=== PATIENT | female | born 1990 | race Caucasian/White ===

== ENCOUNTER 2016-09-16 21:17 | Outpatient (CLI) | payer BC, OTHER ==
[2016-09-16 22:23] LABS: APPEARANCE,URINE CLEAR; BILIRUBIN,URINE NEGATIVE (NEGATIVE); GLUCOSE, URINE NEGATIVE (NEGATIVE); KETONES,URINE 20 mg/dL (NEGATIVE); LEUKOCYTE ESTERASE,URINE MODERATE (NEGATIVE); NITRITE,URINE NEGATIVE (NEGATIVE); PROTEIN,URINE NEGATIVE (NEGATIVE); URINE SPECIFIC GRAVITY 1.009; UROBILINOGEN,URINE NEGATIVE mg/dL (<2.0)
[2016-09-16 22:36] LABS: URINE BARBITURATES SCREEN NEGATIVE; URINE METHADONE SCREEN NEGATIVE; URINE PHENCYCLIDINE SCREEN NEGATIVE
--- NOTE | 2016-09-16 23:01 | Non Stress Test Report ---
Non Stress Test Datetime Report Generated by CPN: 09/16/2016 23:01 DEMOGRAPHIC EGA NST: 35.5 INDICATION Indication for Study: Ordered by Provider Indication for Study (NST) Other: LC MONITORING Monitor Explained: Monitor Explained; Test Explained; Patient Verbalized Understanding Time on Monitor: 09/16/2016 21:37 Time off Monitor: 09/16/2016 22:38 NST Duration: 61 NST INTERVENTIONS NST Interventions: PO Hydration; Reposition Patient Physician Notified NST: Dr. Coello BABY A: [id number] BABY A Movement : Present Contraction Frequency : 2.5-8 FHR Baseline : 135 Accelerations : 15X15 Decelerations : None Variability : Moderate 6-25bpm NST Review: Meets Criteria for Reactive NST NST Review and Verified By : SHARATH Wirght Results: Reactive NST REPORT Report Trigger: Send Report
--- NOTE | 2016-09-17 04:46 | L&D General Admission ---
General Admit Datetime Report Generated by CPN: 09/17/2016 04:45 INFORMATION Patient Age: 25 (09/16/2016 21:15:QS system process) EDC: 10/16/2016 00:00 (09/16/2016 21:19:Cassie Do RN) EDC per Ultrasound: 10/16/2016 00:00 (09/16/2016 21:19:Cassie Do RN) : 3 (09/16/2016 21:19:Beena Bhakta RN) Para: 1 (09/16/2016 22:56:Marlene Omalley RN) Para: 1 (09/16/2016 21:19:Beena Bhakta RN) Term: 1 (09/16/2016 21:19:Beena Bhakta RN) : 0 (09/16/2016 21:19:Beena Bhakta RN) Spontaneous Abortions: 1 (09/16/2016 21:19:Beena Bhakta RN) Induced Abortions: 0 (09/16/2016 21:19:Beena Bhakta RN) Livin (09/16/2016 21:19:Beena Bhakta RN) Cesareans: 0 (09/16/2016 21:19:Beena Bhakta RN) VBACs: 0 (09/16/2016 21:19:Beena Bhakta RN) Ectopic: 0 (09/16/2016 21:19:Beena Bhakta RN) Multiple Births: 0 (09/16/2016 21:19:Beena Bhakta RN) Baby, Number in Womb: 1 (09/16/2016 22:56:Marlene Omalley RN) Baby, Number in Womb: 1 (09/16/2016 21:19:Beena Bhakta RN) CARE Primary Hiv Counselor: [facility] (09/16/2016 21:19:Marlene Omalley RN) Month of 1st Visit: February 2016 (09/16/2016 21:19:Marlene Omalley RN) Adequate Care: Yes (09/16/2016 21:19:Marlene Omalley RN) Height (in): 63 (09/16/2016 22:35:QS system process) ALLERGIES Medication Allergy: Yes (09/16/2016 21:19:Beena Bhakta RN) Medication Allergies: peanut (02/08/2014); adhesive (02/08/2014) (09/16/2016 21:15:QS system process) Latex Allergy: No Latex Allergies (09/16/2016 21:19:Marlene Omalley RN) Food Allergies: Peanut (09/16/2016 21:19:Marlene Omalley RN) Environmental Allergies: N/A (09/16/2016 21:19:Marlene Omalley RN) COMMUNICATION Primary Language: Moroccan (09/16/2016 21:19:Marlene Omalley RN) Medical Tx Preferred Language: Moroccan (09/16/2016 21:19:Marlene Omalley RN) Communication Barrier(s): None (09/16/2016 21:19:Marlene Omalley RN) DEMOGRAPHICS Address: [address] [place] [id number] (09/16/2016 21:15:QS system process) Zipcode: [address] (09/16/2016 21:15:QS system process) Home (09/16/2016 21:15:QS system process) SSN: [id number] (09/16/2016 21:15:QS system process) Next of Kin Name: FRANCISCO J TINSLEY (09/16/2016 21:15:QS system process) Next of Kin (09/16/2016 21:15:QS system process) Next of Kin Relationship: SPO (09/16/2016 21:15:QS system process) Date of : 1990 (09/16/2016 21:15:QS system process) Marital Status: (09/16/2016 21:15:QS system process) Sex: Female (09/16/2016 21:15:QS system process) Race: (09/16/2016 21:15:QS system process) Ethnicity: Non- or (09/16/2016 21:15:QS system process) Congregation: Moravian (09/16/2016 21:15:QS system process) FOB Involved: Yes (09/16/2016 21:19:Marlene Omalley RN) Father of Baby Name: Francisco J Tinsley (09/16/2016 21:19:Marlene Omalley RN) DRUG AND ALCOHOL USE Alcohol: No (09/16/2016 21:19:Marlene Omalley RN) Cigarettes: Former Smoker. [id number] (09/16/2016 21:19:Marlene Omalley RN) Marijuana: No (09/16/2016 21:19:Marlene Omalley RN) Cocaine: No (09/16/2016 21:19:Marlene Omalley RN) Other Illicit Drugs: No (09/16/2016 21:19:Marlene Omalley RN) VACCINE HISTORY Influenza Vaccine: No (09/16/2016 21:19:Marlene Omalley RN) Pneumococcal Vaccine: Yes (09/16/2016 21:19:Marlene Omalley RN) Tetanus Vaccine: Yes (09/16/2016:19:Marlene Omalley RN) Tdap Vaccine: Yes (09/16/2016 21:19:Marlene Omalley RN) Hepatitis B Vaccine: Yes (09/16/2016 21:19:Marlene Omalley RN) [place] Spreader Machine Operator: [facility] (09/16/2016 21:19:Marlene Omalley RN) Feeding Preference: Breast (09/16/2016 21:19:Marlene Omalley RN) Benefit of Breast Feed Discussed: Yes (09/16/2016:19:Marlene Omalley RN) Circumcision: Yes (09/16/2016 21:19:Marlene Omalley RN) Classes Attended: No (09/16/2016 21:19:Marlene Omalley RN) Tubal Ligation: No (09/16/2016 21:19:Marlene Omalley RN) Tubal Authorization Signed: N/A (09/16/2016 21:19:Marlene Omalley RN) Consent: N/A (09/16/2016 21:19:Marlene Omalley RN) Consent Signed: N/A (09/16/2016 21:19:Marlene Omalley RN) Pain Management Plans: Epidural (09/16/2016 21:19:Marlene Omalley RN) Plans for Labor and Delivery: None (09/16/2016 21:19:Marlene Omalley RN) Support Person: Francisco J Tinsley (09/16/2016 21:19:Marlene Omalley RN) Support Person Relationship: (09/16/2016 21:19:Marlene Omalley RN) Cultural/Spritual Practice: No (09/16/2016 21:19:Marlene Omalley RN) Spir/Cult Dietary Needs: Yes (09/16/2016 21:19:Marlene Omalley RN) Describe Dietary Needs: No red meat or pork (09/16/2016 21:19:Marlene Omalley RN) LIVING SITUATION/DISCHARGE PLAN Living Arrangements: House (09/16/2016 21:19:Marlene Omalley RN) Adequate Access to:: Electric; Heat; Refrigeration; Plumbing/Running water; Phone; Transportation (09/16/2016 21:19:Marlene Omalley RN) WIC Program: No (09/16/2016 21:19:Marlene Omalley RN) Discharge Cashier Tube Room Person: Francisco J Tinsley (09/16/2016 21:19:Marlene Omalley RN) Person to Help after Discharge: Francisco J Fleming (09/16/2016 21:19:Marlene Omalley RN) Currently Using Commun Resources: No (09/16/2016 21:19:Marlene Omalley RN) Outside Agency/Powder Shoveler: No (09/16/2016 21:19:Marlene Omalley RN) Car Seat for Discharge: No (09/16/2016 21:19:Marlene Omalley RN) Adoption Requested: No (09/16/2016 21:19:Marlene Omalley RN) Pt Contact w/ Post : N/A (09/16/2016 21:19:Marlene Omalley RN) LABS Blood Type: O Positive (09/16/2016 21:19:Beena Bhakta RN) Antibody Screen: negative (09/16/2016 21:19:Beena Bhakta RN) Group Beta Strep: positive (09/16/2016 21:19:Beena Bhakta RN) Gonorrhea: Negative (09/16/2016 21:19:Beena Bhakta RN) Chlamydia: Negative (09/16/2016 21:19:Beena Bhakta RN) RPR/VDRL: Nonreactive (09/16/2016 21:19:Beena Bhakta RN) Hepatitis B: Negative (09/16/2016 21:19:Beena Bhakta RN) Rubella: Non-Immune (09/16/2016 21:19:Beena Bhakta RN) Rubella Titer: 0.97 (09/16/2016 21:19:Beena Bhakta RN) OB/PREVIOUS HISTORY Previous Procedures: Ultrasound; NST (09/16/2016 21:19:Marlene Omalley RN) Current Procedures: Ultrasound; NST (09/16/2016 21:19:Marlene Omalley RN) History of Previous : No (09/16/2016 21:19:Marlene Omalley RN) History of Gestational Diabetes: No (09/16/2016 21:19:Marlene Omalley RN) History of PIH: Yes (09/16/2016 21:19:Marlene Omalley RN) History of Incompetent Cervix: No (09/16/2016 21:19:Marlene Omalley RN) History of Placenta Previa/Abrup: No (09/16/2016 21:19:Marlene Omalley RN) History of Macrosomia: No (09/16/2016 21:19:Marlene Omalley RN) History of IUGR: No (09/16/2016 21:19:Marlene Omalley RN) History of Hemorrhage: Yes (09/16/2016 21:19:Marlene Omalley RN) History of Loss/Stillborn: No (09/16/2016 21:19:Marlene Omalley RN) History of : No (09/16/2016 21:19:Marlene Omalley RN) History of D (Rh) Sensitization: No (09/16/2016 21:19:Marlene Omalley RN) History Recurrent Loss/Stillborn: No (09/16/2016 21:19:Marlene Omalley RN) History Depression/PP Depression: No (09/16/2016 21:19:Marlene Omalley RN) History of Uterine Anomaly/JAYANT: No (09/16/2016 21:19:Marlene Omalley RN) History of Infertility: No (09/16/2016 21:19:Marlene Omalley RN) History of ART Treatment: No (09/16/2016 21:19:Marlene Omalley RN) History of JAYANT: No (09/16/2016 21:19:Marlene Omalley RN) Comments Obstetrical History: G1 - 2012, miscarriage G2 - 2013, , girl 40.5 weeks G3 - current (09/16/2016 21:19:Marlene Omalley RN) MEDICAL HISTORY Med Hx Diabetes: No (09/16/2016 21:19:Marlene Omalley RN) Med Hx Hypertension: No (09/16/2016 21:19:Marlene Omalley RN) Med Hx Heart Disease: No (09/16/2016 21:19:Marlene Omalley RN) Med Hx Autoimmune Disorder: No (09/16/2016 21:19:Marlene Omalley RN) Med Hx Kidney Disease/UTI: No (09/16/2016 21:19:Marlene Omalley RN) Med Hx Neurologic/Epilepsy: No (09/16/2016 21:19:Marlene Omalley RN) Med Hx Psychiatric Disorders: No (09/16/2016 21:19:Marlene Omalley RN) Med Hx Hepatitis/Liver Disease: No (09/16/2016 21:19:Marlene Omalley RN) Med Hx Varicosities/Phlebitis: No (09/16/2016 21:19:Marlene Omalley RN) Med Hx Thyroid Dysfunction: No (09/16/2016 21:19:Marlene Omalley RN) Med Hx Trauma/Violence: No (09/16/2016 21:19:Marlene Omalley RN) Med Hx Blood Transfusion: No (09/16/2016 21:19:Marlene Omalley RN) Med Hx Pulmonary (Asthma,TB): Yes (09/16/2016 21:19:Marlene Omalley RN) Med Hx Breast: No (09/16/2016 21:19:Marlnee Omalley RN) Med Hx DANCE HALL HOSTESS Surgery: No (09/16/2016 21:19:Marlene Omalley RN) Med Hx Hospitalization/Surgery: No (09/16/2016 21:19:Marlene Omalley RN) Med Hx Anesthetic Complications: No (09/16/2016 21:19:Marlene Omalley RN) Med Hx Abnormal Pap Smear: No (09/16/2016 21:19:Marlene Omalley RN) Other Medical Diseases: No (09/16/2016 21:19:Marlene Omalley RN) Med Hx Significant Family Hx: No (09/16/2016 21:19:Marlene Omalley RN) Details of Med/Surg Hx: Asthma - exercise induced (09/16/2016 21:19:Marlene Omalley RN) INFECTIOUS HISTORY Inf Hx Gonorrhea: No (09/16/2016 21:19:Marlene Omalley RN) Inf Hx Chlamydia: No (09/16/2016 21:19:Marlene Omalley RN) Inf Hx Syphilis: No (09/16/2016 21:19:Marlene Omalley RN) Inf Hx HIV/AIDS: No (09/16/2016 21:19:Marlene Omalley RN) Inf Hx Human Papilloma Virus: No (09/16/2016 21:19:Marlene Omalley RN) Inf Hx Pt/Partner Genital Herpes: No (09/16/2016 21:19:Marlene Omalley RN) Inf Hx Tuberculosis/Exposure: No (09/16/2016 21:19:Marlene Omalley RN) Inf Hx Hepatitis B,C: No (09/16/2016 21:19:Marlene Omalley RN) Inf Hx Rash or Viral Illness: No (09/16/2016 21:19:Marlene Omalley RN) GENETIC HISTORY Gen Hx Age >=35 at KEITH: No (09/16/2016 21:19:Marlene Omalley RN) Gen Hx Thalassemia: No (09/16/2016 21:19:Marlene Omalley RN) Gen Hx Congenital Heart Defect: No (09/16/2016 21:19:Marlene Omalley RN) Gen Hx Neural Tube Defect: No (09/16/2016 21:19:Marlene Omalley RN) Gen Hx Down's Syndrome: No (09/16/2016 21:19:Marlene Omalley RN) Gen Hx Sean-Sachs: No (09/16/2016 21:19:Marlene Omalley RN) Gen Hx Naheed: No (09/16/2016 21:19:Marlene Omalley RN) Gen Hx Familial Dysautonomia: No (09/16/2016 21:19:Marlene Omalley RN) Gen Hx Sickle Cell Disease/Trait: No (09/16/2016 21:19:Marlene Omalley RN) Gen Hx Hemophilia/Blood Disorder: No (09/16/2016 21:19:Marlene Omalley RN) Gen Hx Muscular Dystrophy: No (09/16/2016 21:19:Marlene Omalley RN) Gen Hx Cystic Fibrosis: No (09/16/2016 21:19:Marlene Omalley RN) Gen Hx [place] Chorea: No (09/16/2016 21:19:Marlene Omalley RN) Gen Hx Mental Retardation/Autism: No (09/16/2016 21:19:Marlene Omalley RN) Gen Hx Tested for Fragile X: No (09/16/2016 21:19:Marlene Omalley RN) Gen Hx Other Inher/Chromosomal: No (09/16/2016 21:19:Marlene Omalley RN) Gen Hx Maternal Metabolic DO: No (09/16/2016 21:19:Marlene Omalley RN) Gen Hx Pt Father or FOB Defect: No (09/16/2016 21:19:Marlene Omalley RN) Gen Hx Other Genetic History: No (09/16/2016 21:19:Marlene Omalley RN) Gen Hx Drugs/Meds since LMP: Yes (09/16/2016 21:19:Marlene Omalley RN) Gen Hx Medications: , Zantac, and Tylenol (09/16/2016 21:19:Marlene Omalley RN)
--- NOTE | 2016-09-17 04:46 | L&D Flow Sheet ---
LD Flowsheet Datetime Report Generated by CPN: 09/17/2016 04:45 Datetime: 09/16/2016 22:38 Patient Care Patient Care Comments: Discussed labor and signs and symptoms of when to return to office or hospital with patient; patient verbalized understanding. (Marlene Field, RN) Datetime: 09/16/2016 22:30 Uterine Activity Monitor Mode: External; Palpation ([facility], RN) Frequency (min): 5-8 ([facility], ) Quality: Mild ([facility], RN) Duration (sec): 70-100 ([facility], RN) Resting Tone (Palpate): Relaxed ([facility], RN) Assessment A Monitor Mode: External US ([facility], RN) FHR Baseline Rate : 135 ([facility], RN) Variability: Moderate 6-25 bpm [facility] Accelerations: 15X15 ([facility], RN) Decelerations: None (Marlene Field, RN) Datetime: 09/16/2016 22:27 Communication Communication: RN Reviewed Strip; Provider Orders Received; Call/Page Placed to Provider (Marlene Omalley RN) Communication Comments: Informed Dr. Coello of patient's complaint, history, vag exam, urine results and FHR/Contractions; orders received to discharge home for false labor. (Marlene Omalley, RN) Datetime: 09/16/2016 22:11 Vaginal Exam Dilatation (cm): 0.5 (Marlene Omalley, SHARATH) Effacement (%): 60 (Marlene Omalley, SHARATH) Station: -2 (Marlene Omalley RN) Exam by: SHARATH Siddiqi (Marlene Omalley RN) Cervix, Consistency: Moderate (Marlene Omalley RN) Cervix, Position: Midposition (Marlene Omalley, SHARATH) Datetime: 09/16/2016 22:10 Vital Signs NBP Sys/Tati/Mean (mmHg): 135 (QS system process) : 69 (QS system process) : 95 (QS system process) Pulse: 106 (QS system process) Datetime: 09/16/2016 22:00 Uterine Activity Monitor Mode: External; Palpation ([facility]) Frequency (min): 2.5-6.5 ([facility], ) Quality: Mild ([facility], ) Duration (sec): 50-80 ([facility]) Resting Tone (Palpate): Relaxed ([facility], ) Assessment A Monitor Mode: External US (Marlene Omalley RN) FHR Baseline Rate : 145 (Marlene Omalley RN) Variability: Moderate 6-25 bpm (Marlene Omalley, RN) Accelerations: 15X15 (Marlene Omalley RN) Decelerations: None (Marlnee Omalley RN) Datetime: 09/16/2016 21:47 Frequency (min): q4-6 minutes (Marlene Omalley, SHARATH) Pain Pain Scale: 2 (Marlene Omalley RN) Pain Presence: Intermittent (Marlene Omalley RN) Pain Type: Cramping; Contraction; Stabbing; Pressure (Marlene Omalley, RN) Pain Location: Abdomen; Back (Marlene Omalley RN) Pain Goal: 0 (Marlene Omalley RN) Pain Relief Measures: Comfort Measures (Marlene Omalley RN) Pain Coping: Talking Through Contractions; Breathing Through Contractions (Marlene Omalley, RN) Vaginal Bleeding: None (Marlene Omalley, RN) Maternal Assessment Level of Consciousness: Fully Conscious (Marlene Field, RN) DTR's/Clonus: DTRs 1+; No Clonus (Marlene Field, RN) Headache: Denies (Marlene Field, RN) Breath Sounds, Left: Clear and Equal (Marlene Field, RN) Breath Sounds, Right: Clear and Equal (Marlene Field, RN) Nausea/Vomiting: Present (Marlene Field, RN) RUQ Epigastric Pain: Denies (Marlene Field, RN) Teaching Instructional Method: Verbal; Patient Instructed; Verbalized Understanding (Marlene Omalley, RN) Plan of Care: Plan of Care Discussed (Marlene Omalley, RN) Unit Routine: [place] to Room; Call [place]; Bed; Visiting Policy; Waiting Areas; Infant Security; Phone/Cell Phone Use; Unit Personnel; Handwashing; Flu/Illness Precautions; Monitoring; Safety/Fall Risk Prevention; Bathroom Privileges (Marlene Omalley, RN) Datetime: 09/16/2016 21:39 Vital Signs NBP Sys/Tati/Mean (mmHg): 122 (QS system process) : 71 (QS system process) : 91 (QS system process) Pulse: 134 (QS system process)
--- NOTE | 2016-09-17 04:46 | L&D Current Admission ---
Current Admit Datetime Report Generated by CPN: 09/17/2016 04:45 ADMISSION INFORMATION Chief Complaint: Contractions (09/16/2016 21:47:Marlene Omalley, SHARATH)
--- NOTE | 2016-09-17 04:47 | L&D Admission Assessment ---
LD ADM ASMT Datetime Report Generated by CPN: 09/17/2016 04:45 PATIENT ASSESSMENT Assessment Type: Triage (09/16/2016 21:47:Marlene Field, RN) WEIGHT Weight (lb): 200 (09/16/2016 22:35:QS system process) Weight (kg): 90.9 (09/16/2016 22:35:QS system process) PAIN Pain Scale: 2 (09/16/2016 21:47:Marlene Omalley RN) Pain Presence: Intermittent (09/16/2016 21:47:Marlene Omalley RN) Pain Type: Cramping; Contraction; Stabbing; Pressure (09/16/2016 21:47:Marlene Omalley RN) Pain Location: Abdomen; Back (09/16/2016 21:47:Marlene Omalley RN) Pain Goal: 0 (09/16/2016 21:47:Marlene Omalley RN) Pain Related to Contraction: Yes (09/16/2016 21:47:Marlene Omalley RN) CONTRACTIONS Frequency (min): 5-8 (09/16/2016 22:30:Marlene Omalley RN) Frequency (min): 2.5-6.5 (09/16/2016 22:00:Marlene Omalley RN) Frequency (min): q4-6 minutes (09/16/2016 21:47:Marlene Omalley RN) Duration (sec): 70-100 (09/16/2016 22:30:Marlene Omalley RN) Duration (sec): 50-80 (09/16/2016 22:00:Marlene Omalley RN) Quality: Mild (09/16/2016 22:30:Marlene Omalley RN) Quality: Mild (09/16/2016 22:00:Marlene Omalley RN) Resting Tone [place]: Relaxed (09/16/2016 22:30:Marlene Omalley RN) Resting Tone [place]: Relaxed (09/16/2016 22:00:Marlene Omalley RN) VAGINAL EXAM Dilatation (cm): 0.5 (09/16/2016 22:11:Marlene Omalley RN) Effacement (%): 60 (09/16/2016 22:11:Marlene Omalley RN) Station: -2 (09/16/2016 22:11:Marlene Omalley RN) NEURO Level of Consciousness: Fully Conscious (09/16/2016 21:47:Marlene Omalley RN) DTR's/Clonus: DTRs 1+; No Clonus (09/16/2016 21:47:Marlene Omalley RN) Headache: Denies (09/16/2016 21:47:Marlene Omalley RN) Dizziness: No (09/16/2016 21:47:Marlene Omalley RN) Blurred Vision: No (09/16/2016 21:47:Marlene Omalley RN) Extremity Numbness/Tingling : None (09/16/2016 21:47:Marlene Omalley RN) Extremity Movement: Full Range of Motion (09/16/2016 21:47:Marlene Omalley RN) CARDIOVASCULAR Heart Rhythm: Regular (09/16/2016 21:47:Marlene Omalley RN) Nailbeds: [place] (09/16/2016 21:47:Marlene Omalley RN) Capillary Refill: Less than 3 Seconds (09/16/2016 21:47:Marlene Omalley RN) Lower Extremities Edema: None (09/16/2016 21:47:Marlene Omalley RN) Lower Extremities Edema Degree: None (09/16/2016 21:47:Marlene Omalley RN) Upper Extremities Edema: None (09/16/2016 21:47:Marlene Omalley RN) Upper Extremities Edema Degree: None (09/16/2016 21:47:Marlene Omalley RN) Facial Edema: None (09/16/2016 21:47:Marlene Omalley RN) Marcellus's Sign Left Leg: Negative (09/16/2016 21:47:Marlene Omalley RN) Marcellus's Sign Right Leg: Negative (09/16/2016 21:47:Marlene Omalley RN) DVT RISK ASSESSMENT DVT Risk Age: Age less than 41 years (09/16/2016 21:47:Marlene Omalley RN) DVT Risk BMI: BMI<31 (09/16/2016 21:47:Marlene Omalley RN) DVT Risk Surgery: None Applicable (09/16/2016 21:47:Marlene Omalley RN) DVT Risk Other: Women Only- or (<1 month) (09/16/2016 21:47:Marlene Omalley RN) DVT Risk Total: 1 (09/16/2016 21:47:QS system process) DVT Risk Text: Low Risk (<10%) No specific measures, early ambulation (09/16/2016:47:QS system process) RESPIRATORY Respiratory Effort: Unlabored; Regular Rhythm; Equal Expansion (09/16/2016 21:47:Marlene Omalley RN) Breath Sounds, Left: Clear and Equal (09/16/2016:47:Marlene Omalley RN) Breath Sounds, Right: Clear and Equal (09/16/2016:47:Marlene Omalley RN) Cough Productivity: None (09/16/2016 21:47:Marlene Omalley RN) GASTROINTESTINAL Nausea/Vomiting: Present (09/16/2016 21:47:Marlene Omalley RN) Bowel Sounds: Normoactive (09/16/2016 21:47:Marlene Omalley RN) RUQ Epigastric Pain: Denies (09/16/2016 21:47:Marlene Omalley RN) Bowel Patterns: Loose Stool (09/16/2016 21:47:Marlene Omalley RN) Hemorrhoids: None (09/16/2016 21:47:Marlene Omalley RN) Diet Type: Regular diet (09/16/2016 21:47:Marlene Omalley RN) Last Meal: 09/16/2016 21:00 (09/16/2016 21:47:Marlene Omalley RN) GENITOURINARY Bladder: Nondistended (09/16/2016 21:47:Marlene Omalley RN) Frequency of Urination: No (09/16/2016 21:47:Marlene Omalley RN) Urination Burning: No (09/16/2016 21:47:Marlene Omalley RN) CVA Tenderness: No (09/16/2016 21:47:Marlene Omalley RN) INTEGUMENTARY Skin Color: Normal for Race (09/16/2016 21:47:Marlene Omalley RN) Skin Temperature: Warm (09/16/2016 21:47:Marlene Omalley RN) Skin Moisture: Dry (09/16/2016 21:47:Marlene Omalley RN) EZEQUIEL SKIN ASSESSMENT Ezequiel Scale Sensory Perception: No Impairment- Responds to verbal commands. Has no sensory deficit which would limit ability to feel or voice pain or discomfort (09/16/2016 21:47:Marlene Omalley RN) Eezquiel Scale Moisture: Rarely Moist- Skin is usually dry. Linen only requires changing at routine intervals (09/16/2016 21:47:Marlene Omalley RN) Ezequiel Scale Activity: Walks Frequently- Walks outside the room at least twice a day and inside room at least every 2 hours during the day. (09/16/2016 21:47:Marlene Omalley RN) Ezequiel Scale Mobility: No Limitations- Makes major and frequent changes in position without assistance (09/16/2016 21:47:Marlene Omalley RN) Ezequiel Scale Nutrition: Excellent- Eats most of every meal. Never refuses a meal. Usually eats a total of 4 or more servings of meat and dairy products. Occasionally eats between meals. Does not require supplementation (09/16/2016 21:47:Marlene Omalley RN) Ezequiel Scale Friction and Shear: No Apparent Problem- Moves in bed and in chair independently and has sufficient muscle strength to lift up completely during move. Maintains good position in bed or chair at all times (09/16/2016 21:47:Marlene Omalley RN) Ezequiel Scale Total: 23 (09/16/2016 21:47:QS system process) Ezequiel Scale Risk: No Risk of Pressure Ulcer Noted at this Time (09/16/2016 21:47:QS system process) SUPPORT Family Support: Family supportive (09/16/2016 21:47:Marlene Omalley RN) Emotional State: Anxious (09/16/2016 21:47:Marlene Omalley RN) SAFETY Call [place] Within Reach: Yes (09/16/2016 21:47:Marlene Omalley RN) Side Rails Up: Yes (09/16/2016 21:47:Marlene Omalely RN) Bed Wheels Locked: Yes (09/16/2016 21:47:Marlene Omalley RN) Arm Bands Present: Yes (09/16/2016 21:47:Marlene Omalley RN) Isolation: [place] (09/16/2016 21:47:Marlene Omalley RN) FALL SCREEN Fall Risk History of Falling: (0) No (09/16/2016 21:47:Marlene Omalley RN) Fall Risk Secondary Diagnosis: (0) No (09/16/2016 21:47:Marlene Omalley RN) Fall Risk Ambulatory Aid: (0) None/Bedrest/Wheelchair/Nurse Assist (09/16/2016 21:47:Marlene Omalley RN) Fall Risk IV Therapy: (0) No (09/16/2016 21:47:Marlene Omalley RN) Fall Risk Gait: (0) Normal/Bedrest/Immobile (09/16/2016 21:47:Marlene Omalley RN) Fall Risk Mental Status: (0) Oriented to Own Ability (09/16/2016 21:47:Marlene Omalley RN) Fall Risk Score: 0 (09/16/2016 21:47:QS system process) Fall Risk Score Definition: No Risk: No action required (09/16/2016 21:47:QS system process) RECENT TRAVEL/INFECTIOUS DISEASE Recent Exp Communicable Disease: No (09/16/2016 21:47:Marlene Omalley RN) Cough or Fever: No (09/16/2016 21:47:Marlene Omalley RN) Foreign Travel Past 10 Days: No (09/16/2016 21:47:Marlene Omalley RN) Open Wounds or Sores: No (09/16/2016 21:47:Marlene Omalley RN) Prior Antibiotic Resistance Tx: No (09/16/2016 21:47:Marlene Omalley RN) Cultures Obtained: Not Applicable (09/16/2016 21:47:Marlene Omalley RN) Isolation Initiated: No (09/16/2016 21:47:Marlene Omalley RN) Pt/Family Education: Handwashing Hygiene (09/16/2016 21:47:Marlene Omalley RN) BABY A FHR Baseline Rate (bpm) Baby A: 135 (09/16/2016 22:30:Marlene Omalley RN) FHR Baseline Rate (bpm) Baby A: 145 (09/16/2016 22:00:Marlene Omalley RN) Variability Baby A: Moderate 6-25 bpm (09/16/2016 22:30:Marlene Omalley RN) Variability Baby A: Moderate 6-25 bpm (09/16/2016 22:00:Marlene Omalley RN) Accelerations Baby A: 15X15 (09/16/2016 22:30:Marlene Omalley RN) Accelerations Baby A: 15X15 (09/16/2016 22:00:Marlene Omalley RN) Decelerations Baby A: None (09/16/2016 22:30:Marlene Omalley RN) Decelerations Baby A: None (09/16/2016 22:00:Marlene Omalley RN)
--- NOTE | 2016-09-17 04:47 | L&D Discharge Summary ---
OB Discharge Summary Datetime Report Generated by CPN: 09/17/2016 04:45 DISCHARGE DIAGNOSIS Diagnosis/Symptoms: False Labor Gestation: 35.5 Number of Babies in Womb: 1 Parity: 1 DIET/ACTIVITY/RESTRICTIONS Diet: Regular Activity: Normal Activity TEACHING/INSTRUCTIONS/REFERRALS Instructions Given To: Patient Instructions Understood: Patient Verbalized Understanding Referrals: None Educational Materials- Other: Labor DISCHARGE INFORMATION Discharged AMA: No Discharge Date/Time: 09/16/2016 22:54 Discharged To: Home Discharge Provider Name: Dr. Coello Accompanied By: Self Discharge Method: Ambulatory Condition: Stable FOLLOW UP INFORMATION Follow Up With: [facility] Follow Up On: As Scheduled Follow Up Phone Number: [facility] - Comments: Discussed labor and signs and symptoms of when to return to office or hospital with patient. Patient verbalized understanding. Patient discharged home due to false labor via ambulation in stable condition. GENERAL INSTR-CALL PROVIDER IF: Contractions: Contractions or cramps become more frequent than 8 in one hour or 4 in 20 minutes; Regular painful contractions every 5 minutes or less for one hour. Time your contractions from the beginning of one to the beginning of the next Pressure: Pressure in your vagina or lower abdomen that may feel like the baby is pushing down Period Like Cramps: Period-like cramps or low dull backache that may come and go Cramps/Diarrhea: Abdominal cramps that may be accompanied by diarrhea Gush of Fluid/Blood: Gush of fluid or blood from your vagina (it is normal to have spotting after vaginal exam or intercourse) Vaginal Discharge: Change in the type or amount of vaginal discharge Decreased Movement: Your baby is not moving as much as usual- 4 movements in 1 hour after drinking and resting on side Temperature: Temperature greater than 100.0(F) orally
--- NOTE | 2016-09-17 04:47 | Antepartum Discharge Summary ---
Antepartum DC Datetime Report Generated by CPN: 09/17/2016 04:45 DIET/ACTIVITY/RESTRICTIONS Diet: Regular (09/16/2016 22:56:Marlene Omalley RN) Activity: Normal Activity (09/16/2016 22:56:Marlene Omalley RN) TEACHING/INSTRUCTIONS/REFERRALS Instructions Given To: Patient (09/16/2016 22:56:Marlene Omalley RN) Instructions Understood: Patient Verbalized Understanding (09/16/2016 22:56:Marlene Omalley RN) Referrals: None (09/16/2016 22:56:Marlene Omalley RN) Educational Materials- Other: Labor (09/16/2016 22:56:Marlene Omalley RN) DISCHARGE INFORMATION Discharged AMA: No (09/16/2016 22:56:Marlene Omalley RN) Discharge Date/Time: 09/16/2016 22:54 (09/16/2016 22:56:Marlene Omalley RN) Discharged To: Home (09/16/2016 22:56:Marlene Omalley RN) Discharge Provider Name: Dr. Coello (09/16/2016 22:56:Marlene Omalley RN) Accompanied By: Self (09/16/2016 22:56:Marlene Omalley RN) Discharge Method: Ambulatory (09/16/2016 22:56:Marlene Omalley RN) Condition: Stable (09/16/2016 22:56:Marlene Omalley RN) FOLLOW UP INFORMATION Follow Up With: [facility] (09/16/2016 22:56:Marlene Omalley RN) Follow Up On: As Scheduled (09/16/2016 22:56:Marlene Omalley RN) Follow Up Phone Number: [facility] - (09/16/2016 22:56:Marlene Omalley RN) Comments: Discussed labor and signs and symptoms of when to return to office or hospital with patient. Patient verbalized understanding. Patient discharged home due to false labor via ambulation in stable condition. (09/16/2016 22:56:Marlene Omalley RN) GENERAL INSTR-CALL PROVIDER IF: Contractions: Contractions or cramps become more frequent than 8 in one hour or 4 in 20 minutes; Regular painful contractions every 5 minutes or less for one hour. Time your contractions from the beginning of one to the beginning of the next (09/16/2016 22:56:Marlene Omalley RN) Pressure: Pressure in your vagina or lower abdomen that may feel like the baby is pushing down (09/16/2016 22:56:Marlene Omalley RN) Period Like Cramps: Period-like cramps or low dull backache that may come and go (09/16/2016 22:56:Marlene Omalley RN) Cramps/Diarrhea: Abdominal cramps that may be accompanied by diarrhea (09/16/2016 22:56:Marlene Omalley RN) Gush of Fluid/Blood: Gush of fluid or blood from your vagina (it is normal to have spotting after vaginal exam or intercourse) (09/16/2016 22:56:Marlene Omalley RN) Vaginal Discharge: Change in the type or amount of vaginal discharge (09/16/2016 22:56:Marlene Omalley RN) Decreased Movement: Your baby is not moving as much as usual- 4 movements in 1 hour after drinking and resting on side (09/16/2016 22:56:Marlene Omalley RN) Temperature: Temperature greater than 100.0(F) orally (09/16/2016 22:56:Marlene Omalley RN) Hypertension Signs/Symptoms: Severe headache which is not relieved 30 minutes after taking Tylenol(Acetaminophen); Blurry vision or spots before your eyes; Severe heartburn or pain on the upper right side of your abdomen that is not relieved by an antacid; Increased swelling in your face, hands or feet (09/16/2016 22:56:Marlene Omalley RN) Urinary Output: Decreased urinary output or dark colored urine (09/16/2016 22:56:Marlene Omalley RN)
== END 2016-09-16 22:54 | disposition home or self-care (01) ==
LOC: LC 21:17
PROVIDERS: ATTEND Obstetrics & Gynecology
PROC: 4A1HXCZ Monitoring of Products of Conception, Cardiac Rate, External Approach (ICD-10-PCS; principal; 2016-09-16)
DX: O47.03 False labor before 37 completed weeks of gestation, third trimester (principal); Z3A.35 35 weeks gestation of pregnancy
CPT/HCPCS: 59025; 80307; 81001

== ENCOUNTER 2016-10-10 04:46 | Inpatient (IN) | payer BC, OTHER ==
[2016-10-10] MEDS ORDERED: RINGERS SOLUTION,LACTATED 1,000 ML IV PRN (04:52)
[2016-10-10] MEDS ORDERED: RINGERS SOLUTION,LACTATED 300 ML IV ONE (04:52)
[2016-10-10] MEDS ORDERED: MISOPROSTOL 0.1 MG TABLET PV SCH (05:00)
[2016-10-10 05:27] LABS: ABSOLUTE EOSINOPHILS # (AUTO) 0.2 10^3/uL (0.0-0.6); ABSOLUTE LYMPHOCYTES (AUTO) 2.7 10^3/uL (0.5-4.7); ABSOLUTE MONOCYTES (AUTO) 0.8 10^3/uL (0.1-1.4); ABSOLUTE NEUT (AUTO) 6.8 10^3/uL (1.7-8.2); BASOPHILS % (AUTO) 0.4 % (0-2); EOSINOPHILS % (AUTO) 1.8 % (0-6); HEMATOCRIT 35.4 % (36.0-47.0); HGB HCT DIFFERENCE 0.6; LYMPHOCYTES % (AUTO) 25.3 % (13-45); MEAN CORPUSCULAR HGB CONC 33.9 g/dL (32.0-36.0); MEAN CORPUSCULAR VOLUME 83 fl (80-97); MONOCYTES % (AUTO) 7.8 % (3-13); RED BLOOD COUNT 4.29 10^6/uL (3.72-5.28); RED CELL DISTRIBUTION WIDTH 15.5 % (11.5-14.0); SEGMENTED NEUTROPHILS % (AUTO) 64.7 % (42-78); WHITE BLOOD COUNT 10.5 10^3/uL (4.0-10.5)
[2016-10-10 05:32] LABS: APPEARANCE,URINE CLOUDY; BILIRUBIN,URINE NEGATIVE (NEGATIVE); GLUCOSE, URINE NEGATIVE (NEGATIVE); KETONES,URINE NEGATIVE (NEGATIVE); LEUKOCYTE ESTERASE,URINE LARGE (NEGATIVE); NITRITE,URINE NEGATIVE (NEGATIVE); PROTEIN,URINE NEGATIVE (NEGATIVE); URINE SPECIFIC GRAVITY 1.012; UROBILINOGEN,URINE NEGATIVE mg/dL (<2.0)
[2016-10-10] MEDS ORDERED: MISOPROSTOL 0.1 MG TABLET ONE (05:34)
[2016-10-10 05:47] LABS: URINE BARBITURATES SCREEN NEGATIVE; URINE METHADONE SCREEN NEGATIVE; URINE OPIATES LOW NEGATIVE; URINE PHENCYCLIDINE SCREEN NEGATIVE
--- NOTE | 2016-10-10 08:00 | L&D Flow Sheet ---
LD Flowsheet Datetime Report Generated by CPN: 10/10/2016 08:00 Datetime: 10/10/2016 07:47 Vital Signs NBP Sys/Tati/Mean (mmHg): 109 (QS system process) : 67 (QS system process) : 82 (QS system process) Pulse: 95 (QS system process) Datetime: 10/10/2016 07:17 Vital Signs NBP Sys/Tati/Mean (mmHg): 121 (QS system process) : 66 (QS system process) : 88 (QS system process) Pulse: 100 (QS system process) Datetime: 10/10/2016 06:47 Vital Signs NBP Sys/Tati/Mean (mmHg): 108 (QS system process) : 66 (QS system process) : 77 (QS system process) Pulse: 91 (QS system process) Datetime: 10/10/2016 06:17 Vital Signs NBP Sys/Tati/Mean (mmHg): 102 (QS system process) : 54 (QS system process) : 74 (QS system process) Pulse: 103 (QS system process) Datetime: 10/10/2016 06:00 Respirations: 18 (Apryl Walden) Uterine Activity Monitor Mode: External; Palpation (Apryl Walden) Monitor Interventions for UA: [place] Adjusted (Apryl Walden) Frequency (min): none (Apryl Walden) Resting Tone (Palpate): Relaxed (Apryl Walden) Assessment A Monitor Mode: External US (Apryl Walden) Monitor Interventions for FHR: Ultrasound Adjusted (Apryl Walden) FHR Baseline Rate : 140 (Apryl Walden) FHR Baseline Changes: No Baseline Change (Apryl Walden) Variability: Moderate 6-25 bpm (Apryl Walden) Accelerations: 15X15 (Apryl Walden) Decelerations: None (Apryl Walden) Patient Position/Activity: Right Tilt (Apryl Walden) Datetime: 10/10/2016 05:47 Vital Signs NBP Sys/Tati/Mean (mmHg): 105 (QS system process) : 58 (QS system process) : 77 (QS system process) Pulse: 105 (QS system process) Datetime: 10/10/2016 05:30 Respirations: 18 (Apryl Walden) Uterine Activity Monitor Mode: External; Palpation (Apryl Walden) Monitor Interventions for UA: [place] Adjusted (Apryl Walden) Frequency (min): none (Apryl Walden) Resting Tone (Palpate): Relaxed (Apryl Walden) Assessment A Monitor Mode: External US (Apryl Walden) Monitor Interventions for FHR: Ultrasound Adjusted (Apryl Walden) FHR Baseline Rate : 140 (Apryl Walden) Variability: Moderate 6-25 bpm (Apryl Walden) Accelerations: 15X15 (Apryl Walden) Decelerations: None (Apryl Walden) Medications Cervical Ripening Agents: Cytotec @ (Annotations: 25mcg) (Apryl Walden) Patient Position/Activity: Right Tilt (Apryl Walden) Datetime: 10/10/2016 05:25 Pain Pain Scale: 0 (Apryl Walden) Pain Presence: None/Denies (Apryl Walden) Pain Assessment Comments: (Apryl Walden) Vaginal Bleeding: None (Apryl Walden) Maternal Assessment Level of Consciousness: Fully Conscious (Apryl Walden) DTR's/Clonus: DTRs 2+; No Clonus (Apryl Walden) Headache: Denies (Apryl Walden) Breath Sounds, Left: Clear and Equal (Apryl Walden) Breath Sounds, Right: Clear and Equal (Apryl Walden) Nausea/Vomiting: Denies (Apryl Walden) RUQ Epigastric Pain: Denies (Apryl Walden) Patient Position/Activity: Right Tilt (Apryl Walden) Teaching Instructional Method: Verbal (Apryl Walden) Plan of Care: Plan of Care Discussed (Apryl Walden) Unit Routine: [place] to Room; Call [place]; Bed; Visiting Policy; Waiting Areas; Infant Security; Phone/Cell Phone Use; Photography; Unit Personnel; Consents Signed; Handwashing; Flu/Illness Precautions; Monitoring; IV Pumps; Safety/Fall Risk Prevention; Diet/Nutrition Services; Bathroom Privileges; Medications (Apryl Walden) Datetime: 10/10/2016 05:17 Vital Signs NBP Sys/Tati/Mean (mmHg): 124 (QS system process) : 74 (QS system process) : 89 (QS system process) Pulse: 120 (QS system process) Datetime: 10/10/2016 05:15 Vaginal Exam Dilatation (cm): 2.0 (Apryl Walden) Effacement (%): 50 (Apryl Walden) Station: -3 (Apryl Walden) Exam by: A Walden Rn (Apryl Walden) Datetime: 10/10/2016 05:12 Patient Care IV/Blood Work: IV Started; IV Bolus Started (Annotations: 18g right forearm) (Apryl Walden)
[2016-10-10] MEDS ORDERED: OXYTOCIN/NORMAL SALINE 20 UNIT/1,000 ML RTUINJ ONE ×2 (09:33→17:29)
[2016-10-10] MEDS: OXYTOCIN/NORMAL SALINE 20 UNIT/1,000 ML RTUINJ IV PRN ×2 (09:48→18:41)
--- NOTE | 2016-10-10 10:00 | L&D Flow Sheet ---
LD Flowsheet Datetime Report Generated by CPN: 10/10/2016 10:00 Datetime: 10/10/2016 09:48 Pitocin (milliunit): Pitocin Started (milliunits) @ 2 (Alma Partha, RN) Datetime: 10/10/2016 09:17 NBP Sys/Tati/Mean (mmHg): 119 (QS system process) : 71 (QS system process) : 90 (QS system process) Pulse: 98 (QS system process) Datetime: 10/10/2016 09:08 Communication Comments: C. Al CNM on unit, FHR strip reviewed by CNM. Order recieved to begin pitocin after 4 hours from cytotec placement (Alma Partha, RN) Datetime: 10/10/2016 09:00 Monitor Mode: External; Palpation (Alma Partha, RN) Frequency (min): irreg (Alma Partha, RN) Quality: Mild (Alma Partha, RN) Resting Tone (Palpate): Relaxed (Alma Partha, RN) Monitor Mode: External US (Alma Partha, RN) FHR Baseline Rate : 140 (Alma Partha, RN) Variability: Moderate 6-25 bpm (Alma Partha, RN) Accelerations: 15X15 (Alma Partha, RN) Decelerations: None (Alma Partha, RN) Datetime: 10/10/2016 08:47 NBP Sys/Tati/Mean (mmHg): 131 (QS system process) : 63 (QS system process) : 86 (QS system process) Pulse: 98 (QS system process) Datetime: 10/10/2016 08:30 Monitor Mode: External; Palpation (Alma Partha, RN) Frequency (min): 2-6 (Alma Partha, RN) Quality: Mild (Alma Partha, RN) Duration (sec): 60-80 (Alma Partha, RN) Resting Tone (Palpate): Relaxed (Alma Partha, RN) Monitor Mode: External US (Alma Partha, RN) FHR Baseline Rate : 145 (Alma Partha, RN) Variability: Moderate 6-25 bpm (Alma Partha, RN) Accelerations: 15X15 (Alma Partha, RN) Decelerations: None (Alma Partha, RN) Datetime: 10/10/2016 08:00 Monitor Mode: External (Alma Partha, RN) Frequency (min): irreg (Alma Partha, RN) Quality: Mild (Alma Partha, RN) Duration (sec): 50-80 (Alma Partha, RN) Resting Tone (Palpate): Relaxed (Alma Partha, RN) Monitor Mode: External US (Alma Partha, RN) FHR Baseline Rate : 140 (Alma Partha, RN) Variability: Moderate 6-25 bpm (Alma Partha, RN) Accelerations: 15X15 (Alma Partha, RN) Decelerations: None (Alma Partha, RN)
[2016-10-10] MEDS ORDERED: PENICILLIN G-K 5 MILLION UNIT VIAL ONE ×2 (10:02→14:03)
--- NOTE | 2016-10-10 12:00 | L&D Flow Sheet ---
LD Flowsheet Datetime Report Generated by CPN: 10/10/2016 12:00 Datetime: 10/10/2016 10:42 Comments: pr rocking on ball (Alma Partha, RN) Datetime: 10/10/2016 10:39 Pitocin (milliunit): Pitocin Increased to (milliunits) @ 4 (Alma Partha, RN) Datetime: 10/10/2016 10:23 Communication: RN at Bedside (Alma Partha, RN) Communication Comments: adjusting monitors (Alma Partha, RN) Datetime: 10/10/2016 10:11 Antibiotics: Penicillin IV (Units) @ 5 million (Alma Chavis, RN)
--- NOTE | 2016-10-10 13:01 | L&D Progress Notes ---
PROGRESS NOTES Datetime Report Generated by CPN: 10/10/2016 13:01 PROGRESS NOTE Impression Other: IOL-stable, progressing Procedures: Sterile Vag Exam Plan: Continue Present Management Informed Consent Obtained: Vaginal Delivery; Induction of Labor; Risks, Benefits and Alternatives Discussed Vital Signs : Reviewed; Within Normal Limits Comment: S: pt. on birthing ball, reports feeling contractions uncomfortable but tolerable at this time O: VSS, pit @ 10mu/min, UC 1.5-2min, Cat I tracing, cervix 3.5/80/-2 A: Elective IOL at term-stable, progressing P: Continue IOL with pitocin will AROM with 2nd dose of amp (per Dr. Clements). Reviewed plan with patient who agrees. Will reassess at 1430 or earlier prn. MEMBRANES Membranes: Intact FETUS A Monitoring: External US Decelerations: None SIGNATURE SIGNATURE: [id number] SIGNATURE: [id number] Assignment: Tray Clements DO Signature: with User ID: Vesna : with User ID: [email or web address]
--- NOTE | 2016-10-10 14:00 | L&D Flow Sheet ---
LD Flowsheet Datetime Report Generated by CPN: 10/10/2016 14:00 Datetime: 10/10/2016 13:54 Anesthesia Comments: new bag of LR hung (Alma Chavis, RN) Datetime: 10/10/2016 13:25 Patient Care Comments: pt requesting epidural (Alma Chavis RN) Procedure Verify: Correct Patient Identity (Alma Chavis RN) Anesthesia Plans: Epidural (Alma Chavis RN) Anesthesia Comments: LR bolus started (Alma Partha, RN) Datetime: 10/10/2016 13:00 Monitor Mode: External (Alma Partha, RN) Frequency (min): 1-2 (Alma Partha, RN) Quality: Mild/Moderate (Alma Partha, RN) Duration (sec): 60-80 (Alma Partha, RN) Resting Tone (Palpate): Relaxed (Alma Partha, RN) Monitor Mode: External US (Alma Partha, RN) FHR Baseline Rate : 145 (Alma Partha, RN) Variability: Moderate 6-25 bpm (Alma Partha, RN) Accelerations: 15X15 (Alma Partha, RN) Decelerations: None (Alma Partha, RN) Datetime: 10/10/2016 12:54 Patient Care Comments: pt rocking back and forth on the side of the bed (Alma Partha, RN) Datetime: 10/10/2016 12:45 Monitor Mode: External (Alma Partha, RN) Frequency (min): 1-3 (Alma Partha, RN) Quality: Mild/Moderate (Alma Partha, RN) Duration (sec): 60-80 (Alma Partha, RN) Resting Tone (Palpate): Relaxed (Alma Partha, RN) Monitor Mode: External US (Alma Partha, RN) FHR Baseline Rate : 145 (Alma Partha, RN) Variability: Moderate 6-25 bpm (Alma Partha, RN) Accelerations: 15X15 (Alma Partha, RN) Decelerations: None (Alma Partha, RN) Datetime: 10/10/2016 12:32 Dilatation (cm): 3.5 (Alma Partha, RN) Effacement (%): 80 (Alma Partha, RN) Station: -2 (Alma Partha, RN) Exam by: Rolf Cole CNM (Alma Partha, RN) Datetime: 10/10/2016 12:30 Monitor Mode: External; Palpation (Alma Partha, RN) Frequency (min): 1-3 (Alma Partha, RN) Quality: Mild/Moderate (Alma Partha, RN) Duration (sec): 60-90 (Alma Partha, RN) Resting Tone (Palpate): Relaxed (Alma Partha, RN) Monitor Mode: External US (Alma Partha, RN) FHR Baseline Rate : 145 (Alma Partha, RN) Variability: Moderate 6-25 bpm (Alma Partha, RN) Accelerations: 15X15 (Alma Partha, RN) Decelerations: None (Alma Partha, RN) Communication Comments: Chad Al CNM at bedside (Alma Partha, RN) Datetime: 10/10/2016 12:19 Pitocin (milliunit): Pitocin Increased to (milliunits) @ 10 (Alma Partha, RN) Datetime: 10/10/2016 12:15 Monitor Mode: External (Alma Partha, RN) Frequency (min): 2-3 (Alma Partha, RN) Quality: Mild/Moderate (Alma Partha, RN) Duration (sec): 60-80 (Alma Partha, RN) Resting Tone (Palpate): Relaxed (Alma Partha, RN) Monitor Mode: External US (Alma Partha, RN) FHR Baseline Rate : 145 (Alma Partha, RN) Variability: Moderate 6-25 bpm (Alma Partha, RN) Accelerations: 15X15 (Alma Partha, RN) Decelerations: None (Alma Partha, RN) Datetime: 10/10/2016 12:00 Monitor Mode: External (Alma Partha, RN) Frequency (min): 2-3 (Alma Partha, RN) Quality: Mild/Moderate (Alma Partha, RN) Duration (sec): 60-90 (Alma Partha, RN) Resting Tone (Palpate): Relaxed (Alma Partha, RN) Monitor Mode: External US (Alma Partha, RN) FHR Baseline Rate : 145 (Alma Partha, RN) Variability: Moderate 6-25 bpm (Alma Partha, RN) Accelerations: 15X15 (Alma Partha, RN) Decelerations: None (Alma Partha, RN)
[2016-10-10] MEDS ORDERED: EPHEDRINE SULFATE INJ 50 MG/1 ML AMPULE ONE (14:02)
[2016-10-10] MEDS ORDERED: BUPIVACAINE HCL 0.25 % INJ/PF (2.5 MG/1 ML) 30 ML VIAL ONE (14:02)
[2016-10-10] MEDS ORDERED: FENTANYL/BUPIVACAINE/NS/PF 200 MCG/100 ML RTUINJ EPI ONE (14:02)
--- NOTE | 2016-10-10 15:11 | L&D Progress Notes ---
PROGRESS NOTES Datetime Report Generated by CPN: 10/10/2016 15:11 PROGRESS NOTE Impression Other: IOL-progressing Procedures: Artificial ROM; Sterile Vag Exam Plan: Continue Present Management Informed Consent Obtained: Vaginal Delivery; Induction of Labor; Risks, Benefits and Alternatives Discussed Vital Signs : Reviewed; Within Normal Limits Comment: S: comfortable with epidural placement with small pressure sensation and slight urge to push with contractions. Denies pain at this time O: vss, pit @ 10mu/min, cervix 7/c/-1, Cat I tracing after AROM with early decels A: IOL-progressing, AROM moderate amount of clear fluid P: continue IOL, anticipate vaginal delivery VAGINAL EXAM Contractions: 1.5-4 MEMBRANES Amniotic Fluid Color: Clear FETUS A Monitoring: External US Decelerations: Early; Late FHR Category: Category II FHR Comments: several late decels after epidural placement resolved with position changes and ephedrine FETUS C SIGNATURE: [id number] Assignment: Tray Clements, DO Signature: with User ID: Vesna : with User ID: [email or web address]
[2016-10-10] MEDS ORDERED: MISOPROSTOL 0.2 MG TABLET ONE ×2 (15:23→17:11)
[2016-10-10] MEDS ORDERED: LIDOCAINE 1% INJ-PF (10 MG/ML) 30 ML SDV ONE (15:23)
--- NOTE | 2016-10-10 16:00 | L&D Flow Sheet ---
LD Flowsheet Datetime Report Generated by CPN: 10/10/2016 16:00 Datetime: 10/10/2016 15:41 NBP Sys/Tati/Mean (mmHg): 118 (QS system process) : 54 (QS system process) : 77 (QS system process) Pulse: 106 (QS system process) LaborFlag: Labor (QS system process) Datetime: 10/10/2016 15:34 Dilatation (cm): 9.5 (Alma Chavis, RN) Effacement (%): 100 (Alma Partha, RN) Station: 1 (Alma Partha, RN) Exam by: Johann Chavis RN (Alma Partha, RN) Patient Position/Activity: Right Lateral (Alma Partha, RN) Datetime: 10/10/2016 15:33 Temperature (F): 98.5 (Alma Partha, RN) Temperature (C): 36.9 (QS system process) LaborFlag: Labor (QS system process) Datetime: 10/10/2016 15:28 NBP Sys/Tati/Mean (mmHg): 112 (QS system process) : 70 (QS system process) : 82 (QS system process) Pulse: 121 (QS system process) LaborFlag: Labor (QS system process) Datetime: 10/10/2016 15:15 Stage of : Labor (Yanci Graham RN) Respirations: 20 (Yanci Graham RN) Monitor Mode: External (Yanci Graham RN) Frequency (min): 2-3 (Yanci Graham RN) Quality: Moderate to Strong (Yanci Graham RN) Duration (sec): 60-80 (Yanci Graham RN) Resting Tone (Palpate): Relaxed (Yanci Graham RN) FHR Baseline Rate : 145 (Yanci Graham RN) FHR Baseline Changes: No Baseline Change (Yanci Graham RN) Variability: Minimal - Undetectable to <=5 bpm (Yanci Graham RN) Accelerations: None (Yanci Graham RN) Decelerations: Early (Yanci Graham RN) Pain Scale: 3 (Yanci Graham RN) Pain Presence: Constant (Yanci Graham RN) Pain Type: Pressure (Yanci Graham RN) Pain Location: Abdomen; Perineum (Yanci Graham RN) Pain Coping: Breathing Through Contractions (Yanci Graham RN) Dilatation (cm): 9.5 (Yanci Graham RN) Effacement (%): 100 (Yanci Graham RN) Station: 2 (Yanci Graham RN) Exam by: MONET GRAHAM RN (Yanci Graham RN) Amniotic Fluid Odor: Normal (Yanci Graham RN) Vaginal Bleeding: Normal Show (Yanci Graham RN) Cervix, Consistency: Soft (Yanci Graham RN) Cervix, Position: Anterior (Yanci Graham RN) Vaginal Exam Comments: ANT LIP (Yanic Graham RN) Pitocin (milliunit): Pitocin Remains (milliunits) @ 10 (Yanci Graham, SHARATH) Procedures: Sterile Vag Exam (Yanci Graham, RN) Patient Position/Activity: Tailors (Yanci Graham, RN) Communication: RN at Bedside; RN Reviewed Strip (Yanci Graham RN) LaborFlag: Labor (QS system process) Datetime: 10/10/2016 15:13 NBP Sys/Tati/Mean (mmHg): 128 (QS system process) : 59 (QS system process) : 77 (QS system process) Pulse: 116 (QS system process) LaborFlag: Labor (QS system process) Datetime: 10/10/2016 15:02 Stage of : Labor (Yanci Graham, SHARATH) Respirations: 20 (Yanci Graham RN) Monitor Mode: External (Yanci Graham RN) Monitor Interventions for UA: [place] Adjusted (Yanci Graham RN) Frequency (min): 2-3 (Yanci Graham, RN) Quality: Moderate to Strong (Yanci Graham, RN) Duration (sec): 60-80 (Yanci Graham, RN) Resting Tone (Palpate): Relaxed (Yanci Graham, RN) Monitor Mode: External US (Yanci Graham, RN) Monitor Interventions for FHR: Ultrasound Adjusted (Yanci Graham, RN) FHR Baseline Rate : 145 (Yanci Graham, RN) FHR Baseline Changes: No Baseline Change (Yanci Graham, RN) Variability: Minimal - Undetectable to <=5 bpm (Yanci Graham, RN) Accelerations: None (Yanci Graham, RN) Decelerations: Early (Yanci Graham, SHARATH) Pain Scale: 2 (Yanci Graham, RN) Pain Presence: Intermittent (Yanci Graham, RN) Pain Type: Pressure (Yanci Graham, RN) Pain Location: Abdomen; Perineum (Yanci Graham, RN) Pain Relief Measures: Comfort Measures (Yanci Graham, RN) Pain Coping: Breathing Through Contractions (Yanci Graham, RN) Pitocin (milliunit): Pitocin Remains (milliunits) @ 10 (Yanci Graham, RN) IV/Blood Work: IV Infusing per Order (Yanci Graham, RN) Patient Position/Activity: Right Lateral; Semi-Fowlers (Yanci Graham, RN) Comfort Measures: Breathing/Relaxation (Yanci Graham, RN) I/O Interventions: Clear Liquids Given (Yanci Graham, RN) Communication: RN at Bedside; RN Reviewed Strip (Yanci Graham, RN) LaborFlag: Labor (QS system process) Datetime: 10/10/2016 15:00 NBP Sys/Tati/Mean (mmHg): 113 (QS system process) : 53 (QS system process) : 77 (QS system process) Pulse: 116 (QS system process) LaborFlag: Antepartum (QS system process) Datetime: 10/10/2016 14:57 Patient Position/Activity: Right Lateral (Alma Chavis RN) Datetime: 10/10/2016 14:55 Dilatation (cm): 7.0 (Alma Chavis RN) Effacement (%): 100 (Alma Chavis RN) Station: -1 (Alma Chavis RN) Exam by: Chad Al CNM (Alma Chavis RN) Membrane Status: Ruptured (Alma Chavis RN) Membranes Rupture Method: Spontaneous (Alma Chavis RN) Amniotic Fluid Color: Clear (Alma Partha, RN) Amniotic Fluid Amount: Moderate (Alma Partha, RN) Datetime: 10/10/2016 14:54 Communication Comments: C .Al CNM at bedside (Alma Partha, RN) Datetime: 10/10/2016 14:52 NBP Sys/Tati/Mean (mmHg): 113 (QS system process) : 57 (QS system process) : 78 (QS system process) Pulse: 113 (QS system process) LaborFlag: Antepartum (QS system process) Datetime: 10/10/2016 14:45 NBP Sys/Tati/Mean (mmHg): 123 (QS system process) : 62 (QS system process) : 87 (QS system process) Pulse: 100 (QS system process) Monitor Mode: External (Alma Partha, RN) Frequency (min): 2-4 (Alma Partha, RN) Quality: Moderate to Strong (Alma Partha, RN) Duration (sec): 60-90 (Alma Partha, RN) Resting Tone (Palpate): Relaxed (Alma Partha, RN) Monitor Mode: External US (Alma Partha, RN) FHR Baseline Rate : 135 (Alma Partha, RN) Variability: Moderate 6-25 bpm (Alma Partha, RN) Accelerations: None (Alma Partha, RN) Decelerations: Late (Alma Partha, RN) LaborFlag: Antepartum (QS system process) Datetime: 10/10/2016 14:43 Patient Position/Activity: Right Lateral (Alma Partha, RN) Datetime: 10/10/2016 14:42 NBP Sys/Tati/Mean (mmHg): 119 (QS system process) : 64 (QS system process) : 86 (QS system process) Pulse: 107 (QS system process) Medication Comments: 5mg Ephedrine IV (Alma Partha, RN) LaborFlag: Antepartum (QS system process) Datetime: 10/10/2016 14:40 Temperature (F): 98.3 (Alma Partha, RN) Temperature (C): 36.8 (QS system process) Medication Comments: 5mg Ephedrine IV (Alma Partha, RN) LaborFlag: Antepartum (QS system process) Datetime: 10/10/2016 14:39 NBP Sys/Tati/Mean (mmHg): 117 (QS system process) : 55 (QS system process) : 79 (QS system process) Pulse: 63 (QS system process) LaborFlag: Antepartum (QS system process) Datetime: 10/10/2016 14:36 NBP Sys/Tati/Mean (mmHg): 118 (QS system process) : 56 (QS system process) : 80 (QS system process) Pulse: 102 (QS system process) LaborFlag: Antepartum (QS system process) Datetime: 10/10/2016 14:35 NBP Sys/Tati/Mean (mmHg): 132 (QS system process) : 56 (QS system process) : 80 (QS system process) Pulse: 100 (QS system process) Patient Position/Activity: Left Lateral (Alma Partha, RN) LaborFlag: Antepartum (QS system process) Datetime: 10/10/2016 14:34 NBP Sys/Tati/Mean (mmHg): 113 (QS system process) : 53 (QS system process) : 76 (QS system process) Pulse: 100 (QS system process) LaborFlag: Antepartum (QS system process) Datetime: 10/10/2016 14:33 NBP Sys/Tati/Mean (mmHg): 115 (QS system process) : 56 (QS system process) : 81 (QS system process) Pulse: 108 (QS system process) Patient Position/Activity: Right Extreme (Alma Chavsi, RN) LaborFlag: Antepartum (QS system process) Datetime: 10/10/2016 14:32 NBP Sys/Tati/Mean (mmHg): 129 (QS system process) : 60 (QS system process) : 86 (QS system process) Pulse: 102 (QS system process) LaborFlag: Antepartum (QS system process) Datetime: 10/10/2016 14:31 NBP Sys/Tati/Mean (mmHg): 129 (QS system process) : 57 (QS system process) : 84 (QS system process) Pulse: 103 (QS system process) LaborFlag: Antepartum (QS system process) Datetime: 10/10/2016 14:30 NBP Sys/Tati/Mean (mmHg): 134 (QS system process) : 65 (QS system process) : 90 (QS system process) Pulse: 100 (QS system process) Monitor Mode: External; Palpation (Alma Chavis RN) Frequency (min): 2-3 (Alma Chavis RN) Quality: Moderate to Strong (Alma Chavis RN) Duration (sec): 70-90+ (Alma Chavis RN) Resting Tone (Palpate): Relaxed (Alma Chavis RN) Monitor Mode: External US (Alma Chavis RN) FHR Baseline Rate : 135 (Alma Chavis RN) Variability: Moderate 6-25 bpm (Alma Chavis RN) Accelerations: None (Alma Chavis RN) Decelerations: None (Alma Chavis RN) I/O Interventions: Celeste Cath Inserted (Alma Chavis RN) Patient Care Comments: draining clear yellow urine without difficulty, pt tolerated placement well_ (Alma Chavis RN) LaborFlag: Antepartum (QS system process) Datetime: 10/10/2016 14:29 NBP Sys/Tati/Mean (mmHg): 136 (QS system process) : 64 (QS system process) : 92 (QS system process) Pulse: 101 (QS system process) LaborFlag: Antepartum (QS system process) Datetime: 10/10/2016 14:28 NBP Sys/Tati/Mean (mmHg): 137 (QS system process) : 64 (QS system process) : 92 (QS system process) Pulse: 100 (QS system process) LaborFlag: Antepartum (QS system process) Datetime: 10/10/2016 14:26 NBP Sys/Tati/Mean (mmHg): 124 (QS system process) : 62 (QS system process) : 89 (QS system process) Pulse: 100 (QS system process) Patient Care Comments: pt supine after epidural placement (Alma Chavis RN) LaborFlag: Antepartum (QS system process) Datetime: 10/10/2016 14:25 NBP Sys/Tati/Mean (mmHg): 129 (QS system process) : 70 (QS system process) : 91 (QS system process) Pulse: 96 (QS system process) LaborFlag: Antepartum (QS system process) Datetime: 10/10/2016 14:24 NBP Sys/Tati/Mean (mmHg): 126 (QS system process) : 66 (QS system process) : 86 (QS system process) Pulse: 103 (QS system process) Pulse: 96 (QS system process) SpO2 (%): 99 (QS system process) LaborFlag: Antepartum (QS system process) Datetime: 10/10/2016 14:23 NBP Sys/Tati/Mean (mmHg): 128 (QS system process) : 63 (QS system process) : 90 (QS system process) Pulse: 89 (QS system process) LaborFlag: Antepartum (QS system process) Datetime: 10/10/2016 14:22 NBP Sys/Tati/Mean (mmHg): 131 (QS system process) : 66 (QS system process) : 92 (QS system process) Pulse: 102 (QS system process) Anesthesia Plans: Epidural (Alma Partha, RN) Epidural Procedure: Test Dose (Alma Partha, RN) LaborFlag: Antepartum (QS system process) Datetime: 10/10/2016 14:19 Pulse: 93 (QS system process) SpO2 (%): 100 (QS system process) LaborFlag: Antepartum (QS system process) Datetime: 10/10/2016 14:15 Monitor Mode: External (Alma Partha, RN) Frequency (min): 2-3 (Alma Partha, RN) Quality: Moderate to Strong (Alma Partha, RN) Duration (sec): 60-90 (Alma Partha, RN) Resting Tone (Palpate): Relaxed (Alma Partha, RN) Comments: unable to determine due to pt position and movement (Alma Partha, RN) Datetime: 10/10/2016 14:14 Pulse: 93 (QS system process) SpO2 (%): 99 (QS system process) Antibiotics: Penicillin IV (Units) @ 2.5 million (Alma Partha, RN) LaborFlag: Antepartum (QS system process) Datetime: 10/10/2016 14:13 Procedure Verify: Correct Patient Identity (Alma Chavis RN) Anesthesia Plans: Epidural (Alma Cahvis RN) Epidural Positioning: Sitting (Alma Chavis RN) Anesthesia Comments: Dr. arthur at bedside (Alma Chavis, SHARATH) Datetime: 10/10/2016 14:11 Patient Care Comments: pt sitting up for epidural placement (Alma Chavis, RN) Datetime: 10/10/2016 14:00 Monitor Mode: External; Palpation (Alma Chavis RN) Frequency (min): 2-3 (Alma Chavis RN) Quality: Moderate to Strong (Alma Chavis RN) Duration (sec): 60-80 (Alma Chavis RN) Resting Tone (Palpate): Relaxed (Alma Chavis RN) Comments: unable to determine due to pt position and movement (Alma Chavis RN)
[2016-10-10] MEDS ORDERED: CEFAZOLIN 2 GM/D5W RTU 2 GM/50 ML RTUPB IV ONE (17:11)
[2016-10-10] MEDS ORDERED: BENZOCAINE/MENTHOL AEROSOL SPRAY 56 ML TOP PRN (17:13)
[2016-10-10] MEDS ORDERED: DIBUCAINE 1% OINTMENT 28 GM TP PRN (17:13)
[2016-10-10] MEDS ORDERED: DIPH/PERTUSS(ACELL)/TETANUS VAC/PF 0.5 ML SYR (>=10YO) IM PRN (17:13)
[2016-10-10] MEDS ORDERED: ZOLPIDEM TARTRATE 5 MG TABLET PO PRN (17:13)
[2016-10-10] MEDS ORDERED: ACETAMINOPHEN WITH CODEINE #3 TABLET PO PRN ×2 (17:13)
[2016-10-10] MEDS ORDERED: OXYTOCIN/NORMAL SALINE 1,000 ML IV PRN (17:13)
[2016-10-10] MEDS ORDERED: MISOPROSTOL 0.2 MG TABLET PR PRN (17:13)
[2016-10-10] MEDS ORDERED: MEASLES,MUMPS&RUBELLA VACC/PF 0.5 ML VIAL SUBCUT PRN (17:13)
--- NOTE | 2016-10-10 18:00 | L&D Flow Sheet ---
LD Flowsheet Datetime Report Generated by CPN: 10/10/2016 18:00 Datetime: 10/10/2016 17:45 Respirations: 16 (Alma Partha, RN) Pain Scale: 0 (Alma Partha, RN) Pain Presence: None/Denies (Alma Partha, RN) Pain Type: N/A (Alma Partha, RN) Datetime: 10/10/2016 17:31 NBP Sys/Tati/Mean (mmHg): 109 (QS system process) : 53 (QS system process) : 76 (QS system process) Datetime: 10/10/2016 17:30 Respirations: 17 (Alma Partha, RN) Pain Scale: 2 (Alma Partha, RN) Pain Presence: Constant (Alma Partha, RN) Pain Type: Burning (Alma Partha, RN) Pain Location: Perineum (Alma Partha, RN) Pain Relief Measures: Comfort Measures (Alma Partha, RN) Datetime: 10/10/2016 17:16 NBP Sys/Tati/Mean (mmHg): 117 (QS system process) : 57 (QS system process) : 80 (QS system process) Pulse: 104 (QS system process) Datetime: 10/10/2016 17:15 Respirations: 16 (Alma Partha, RN) Pain Scale: 1 (Alma Partha, RN) Pain Presence: Constant (Alma Partha, RN) Pain Type: Burning (Alma Partha, RN) Pain Location: Perineum (Alma Partha, RN) Pain Relief Measures: Comfort Measures (Alma Partha, RN) Datetime: 10/10/2016 17:01 Stage of : Recovery (Alma Partha, RN) NBP Sys/Tati/Mean (mmHg): 124 (QS system process) : 61 (QS system process) : 84 (QS system process) Pulse: 129 (QS system process) Datetime: 10/10/2016 17:00 Respirations: 16 (Alma Partha, RN) Temperature (F): 98.4 (Alma Partha, RN) Temperature (C): 36.9 (QS system process) Pain Scale: 3 (Alma Partha, RN) Pain Presence: Constant (Alma Partha, RN) Pain Type: Burning (Alma Partha, RN) Pain Location: Perineum (Alma Partha, RN) Pain Relief Measures: Comfort Measures (Alma Partha, RN) LaborFlag: Labor (QS system process) Datetime: 10/10/2016 16:56 NBP Sys/Tati/Mean (mmHg): 149 (QS system process) : 57 (QS system process) : 82 (QS system process) Pulse: 126 (QS system process) LaborFlag: Labor (QS system process) Datetime: 10/10/2016 16:39 Patient Position/Activity: Right Lateral (Alma Partha, RN) Datetime: 10/10/2016 16:34 Patient Position/Activity: Left Lateral (Alma Chavis, RN) Datetime: 10/10/2016 16:28 NBP Sys/Tati/Mean (mmHg): 124 (QS system process) : 84 (QS system process) : 98 (QS system process) Pulse: 139 (QS system process) LaborFlag: Labor (QS system process) Datetime: 10/10/2016 16:26 Monitor Interventions for FHR: Ultrasound Adjusted (Alma Chavis RN) Patient Position/Activity: HOB Lowered (Alma Chavis RN) Provider Reviewed Strip: Yes (Alma Chavis RN) Communication Comments: provider remains at bedside (Alma Chavis, SHARATH) Datetime: 10/10/2016 16:15 Monitor Mode: External; Palpation (Arely Camp, RNC) Frequency (min): 1.5-3 (Arely Camp, RNC) Quality: Moderate (Arely Camp, RNC) Duration (sec): 60-80 (Arely Camp, RNC) Duration Criteria: Less than Two 120 Second Contractions (Arely Camp, RNC) Pattern: Normal: <= 5 Contractions in 10 Minutes (Arely Camp, RNC) Resting Tone (Palpate): Relaxed (Arely Camp, RNC) Monitor Mode: External US; Auscultation (Arely Camp, RNC) FHR Baseline Rate : 140 (Arely Camp, RNC) FHR Baseline Changes: No Baseline Change (Arely Camp, RNC) Variability: Moderate 6-25 bpm (Arely Camp, RNC) Decelerations: Early; Variable (Arely Camp, RNC) Pushing Position: Pushing with Contractions (Arely Camp, RNC) Datetime: 10/10/2016 16:07 Patient Position/Activity: Tailors (Alma Partha, RN) Datetime: 10/10/2016 16:03 Communication: RN at Bedside; Provider at Bedside (Alma Chavis RN) Communication Comments: C Al CNM at bedside (Alma Chavis, RN) Datetime: 10/10/2016 16:02 Actions for Decelerations: Side to Side (Alma Partha, RN) Pushing: Urge to Push; Involuntary Pushing (Alma Partha, RN) Datetime: 10/10/2016 16:00 Monitor Mode: External; Palpation (Arely Camp, RNC) Monitor Interventions for UA: [place] Adjusted (Arely Camp, RNC) Frequency (min): 2-2.5 (Arely Camp, RNC) Quality: Moderate (Arely Camp, RNC) Duration (sec): 60-90 (Arely Camp, RNC) Pattern: Normal: <= 5 Contractions in 10 Minutes (Arely Camp, RNC) Resting Tone (Palpate): Relaxed (Arely Camp, RNC) Monitor Mode: External US; Auscultation (Arely Camp, RNC) FHR Baseline Rate : 140 (Arely Camp, RNC) FHR Baseline Changes: No Baseline Change (Arely Camp, RNC) Variability: Minimal - Undetectable to <=5 bpm (Arely Camp, RNC) Decelerations: Early (Arely Camp, RNC)
[2016-10-10] MEDS: CEFAZOLIN 2 GM/D5W RTU 50 ML IV SCH (18:40)
--- NOTE | 2016-10-10 19:00 | Delivery Summary ---
Del Sum A-C Datetime Report Generated by CPN: 10/10/2016 19:00 ADMISSION DATA Chief Complaint: Scheduled Induction of Labor Admission Impression: Term, Intrauterine Admit Provider Comments: Pt with MFM recommended induction at 39 wks due to h/o traumatic delivery. Delivery records only show 2nd degree lac and no shoulder dystocia but induction per mfm. GBS + will tx in labor...cytotec for ripening now. DELIVERY PERSONNEL Delivery Doctor:: Ana Al Nurse [employer]ix System Administrator Certified:: Ana Al CNM Labor and Delivery Nurse:: Alma Chavis RNaircraft systems repairer Nurse:: Arely Wilkins RNC Rpg Developer/YACHT HAND: America Anderson CST Rpg Developer/YACHT HAND: ST Matty Additional Personnel: : Caryl Liu RN MATERNAL INFORMATION Delivery Anesthesia: Epidural Medications After Delivery: Pitocin Bolus-Please Comment Meds After Delivery Comment: Pitocin 20 units in 1000 ml NSS open for bolus after delivery of placenta 1000mcg Cytotec PV Estimated Blood Loss (ml): 300 Maternal Complications: None Provider Comments: Pt. progressed to c/c/o with urge to push. Labored down for about 20min then began pushing in several positions and with much coaching went on to deliver a viable baby boy through a loose nuchal cord. Vigorous respiratory effort and cry with tactile stimulation. Cord allowed to stop pulsating then clamped x 2 and cut by FOB (3vc noted). Placenta delivered spontaneously with trailing membranes. Bleeding continued and multiple clots and small amount of membranes obtained. Vaginal sweep performed and small clots and small piece of membranes obtained. Fundus firm @ u-1 and bleeding stable. 1000mcg cytotec placed rectally. MLL noted and repaired as stated above. No other lacerations noted. Mother and baby in room stable. LABOR SUMMARY EDC: 10/16/2016 00:00 No. Babies in Womb: 1 Attempted: No Labor Anesthesia: Epidural LABOR INFORMATION Reason for Induction: Other Reason for Induction- Other: elective Onset of Labor: 10/10/2016 13:00 Complete Dilatation: 10/10/2016 15:52 Cervical Ripening Agents: Cytotec @ (Annotations: 25mcg) Oxytocin: Induction Group B Beta Strep: Positive Antibiotics # of Doses: 2 Antibiotics Time of Last Dose: 1414 Name of Antibiotic Given: Penicillin Steroids Given: None Reason Steroids Not Administered: Not Applicable MEMBRANES Membranes Rupture Method: Spontaneous Rupture of Membranes: 10/10/2016 14:55 Length of Rupture (hr): 1.92 Amniotic Fluid Color: Clear Amniotic Fluid Amount: Moderate Amniotic Fluid Odor: Normal STAGES OF LABOR Stage 1 hr: 2 Stage 1 min: 52 Stage 2 hr: 0 Stage 2 min: 58 Stage 3 hr: 0 Stage 3 min: 10 Total Time in Labor hr: 4 Total Time in Labor min: 0 VAGINAL DELIVERY Episiotomy: None Laceration Extension: First Degree Laceration Type: Perineal Laceration Repair: Yes Laceration Repair Note: 1st degree MLL repaired with 2-0 chromic in the usual fashion and hemostatic. Sponge Count Correct: Vaginal Sweep Performed Sharps Count Correct: N/A CSECTION DELIVERY Primary Indication: N/A Secondary Indication: N/A CSection Incidence: N/A Labor: N/A Elective: N/A CSection Incision: N/A BABY A INFORMATION Delivery Date/Time: 10/10/2016 16:50 Method of Delivery: Vaginal Born in Route : No : N/A Forceps: N/A Vacuum Extraction: N/A Shoulder Dystocia : No PRESENTATION/POSITION BABY A Presentation: Cephalic Cephalic Presentation: Vertex Vertex Position: Right Occipital Anterior Breech Presentation: N/A PLACENTA INFORMATION BABY A Placenta Delivery Time : 10/10/2016 17:00 Placenta Method of Delivery: Spontaneous Placenta Status: Delivered SCORES BABY A Heart Rate 1 min: >100 bpm Resp Effort 1 min: Good Cry Reflex Irritability 1 min: Cough or Sneeze or Pulls Away Muscle Tone 1 min: Active Motion Color 1 min: Blue/Pale Resuscitation Effort 1 min: Tactile Stimulation SCORE 1 MIN: 8 Heart Rate 5 min: >100 bpm Resp Effort 5 min: Good Cry Reflex Irritability 5 min: Cough or Sneeze or Pulls Away Muscle Tone 5 min: Active Motion Color 5 min: Body [place], Extremities Blue Resuscitation Effort 5 min: N/A SCORE 5 MIN: 9 Resuscitation Effort 10 min: N/A INFANT INFORMATION BABY A Gestational Age at Delivery: 39.1 Gestational Status: Full Term- 39- 40.6 Weeks Outcome : Liveborn Infant Condition : Stable Infant Sex: Male IDENTIFICATION BABY A Infant Verification Date/Time: 10/10/2016 17:04 ID Band Number: [id number] Mother's Name Verified: Yes Infant RN Verifying Infant: Arely Clovis RNC Additional Verifying Personnel: Alma Desai RN WEIGHT/LENGTH BABY A Infant Birthweight (gm): 4480 Infant Weight (lb): 9 Weight (oz): 14 Infant Length (in): 20.75 Length (cm): 52.71 CORD INFORMATION BABY A No. Cord Vessels: 3 Nuchal Cord : Around Neck x1, Loose Cord Blood Taken: Yes-For Eval (Mom's Blood Type - or O+) Infant Suction: None ASSESSMENT BABY A Complications: Meconium Complications- Other: terminal mec noted, nuchal x1 Physical Findings at Delivery: Caput Succedaneum Respirations: Appears Normal Skin to Skin: Yes Skin to Skin Time (min): 90 Scenic Designer/ALS Called : No Infant Care By: Caryl Liu RN Transferred To: Nursery BABY B INFORMATION : N/A SIGNATURES Assignment: Tray Clements DO Signature: with User ID: [email or web address] : with User ID: [email or web address]
--- NOTE | 2016-10-10 20:40 | Admission Physical ---
Datetime Report Generated by CPN: 10/10/2016 20:39 CURRENT ADMISSION Hx Assessment: The History has been Reviewed and is Current Chief Complaint: Scheduled Induction of Labor Admit Plan: Initiate Labor Induction Protocol ALLERGIES Medication Allergies: Yes Medication Allergies: peanut (02/08/2014); adhesive (02/08/2014) Latex: No Latex Allergies Food Allergies: Peanut Environmental Allergies: N/A OBSTETRICAL HISTORY EDC: 10/16/2016 00:00 : 3 Para: 1 Term: 1 : 0 SAB: 1 IAB: 0 Ectopic: 0 Livin Cesareans: 0 VBACs: 0 Multiple Births: 0 Gestational Diabetes: No Rh Sensitization: No Incompetent Cervix: No JAYANT: No Infertility: No ART Treatment: No Uterine Anomaly: No IUGR: No Hx Previous C/S: No Macrosomia: No Hx Loss/Stillborn: No PIH: Yes Hx : No Placenta Previa/Abruption: No Depression/PP Depression: No PTL/PROM: No Post Hemorrhage: No Current Procedures: Ultrasound; NST Obstetrical History Comments: G1 - 2012, miscarriage G2 - 2013, , girl 40.5 weeks G3 - current SEE RECORDS Alcohol: No Marijuana : No Cocaine: No Other Illicit Drugs: No Cigarettes: Former Smoker. [id number] MEDICAL HISTORY Diabetes: No Blood Transfusion: No Pulmonary Disease (Asthma, TB): Yes Breast Disease: No Hypertension: No Global Implementation Manager Surgery: No Heart Disease: No Hosp/Surgery: No Autoimmune Disorder: No Anesthetic Complications: No Kidney Disease: No Abnormal Pap Smear: No Neuro/Epilepsy: No Psychiatric Disorders: No Other Medical Diseases: No Hepatitis/Liver Disease: No Significant Family History: No Varicosities/Phlebitis: No Trauma/Violence : No Thyroid Dysfunction: No Medical History Comments: Asthma - exercise induced INFECTIOUS HISTORY Gonorrhea: No Genital Herpes: No Chlamydia: No Tuberculosis: No Syphilis: No Hepatitis: No HIV/AIDS Exposure: No Rash or Viral Illness: No HPV: No PHYSICAL EXAM General: Normal HEENT: Normal Neurologic: Normal Thyroid: Normal Heart: Normal Lungs: Normal Breast: Normal Back: Normal Abdomen: Normal Genitourinary Exam: Normal Extremities: Normal DTRs: Normal Pelvic Type: Adequate Physical Exam Comments: efw 8 pounds (pelvis proven to 8 pounds9 oz) Vital Signs: Reviewed VAGINAL EXAM Contraction Comments: 1.5-4 MEMBRANES Membranes: Intact Amniotic Fluid Color: Clear FETUS A EGA: 39.1 Monitoring: External US FHR Category: Category I Admit Comment: Pt with MFM recommended induction at 39 wks due to h/o traumatic delivery. Delivery records only show 2nd degree lac and no shoulder dystocia but induction per mfm. GBS + will tx in labor...cytotec for ripening now. PLANS FOR LABOR AND DELIVERY Labor and Delivery: None Pain Management: Epidural Feeding Preference: Breast Benefit of Breast Feed Discussed: Yes Circumcision: Yes INFORMED CONSENT Informed Consent Obtained: Vaginal Delivery; Induction of Labor; Risks, Benefits and Alternatives Discussed Signature: with User ID: [email or web address]
[2016-10-10] MEDS: FERROUS SULFATE 325 MG TABLET PO SCH (20:46)
[2016-10-10] MEDS: DOCUSATE SODIUM 100 MG CAPSULE PO SCH (20:46)
[2016-10-10] MEDS: IBUPROFEN 800 MG TABLET PO SCH (21:43)
[2016-10-11] MEDS: CEFAZOLIN 2 GM/D5W RTU 50 ML IV SCH (01:04)
[2016-10-11] MEDS ORDERED: METHYLERGONOVINE MALEATE INJ/PF 0.2 MG/1 ML AMPULE IM ONE (01:45)
[2016-10-11] MEDS: IBUPROFEN 800 MG TABLET PO SCH ×3 (06:07→21:53)
--- NOTE | 2016-10-11 07:00 | L&D Flow Sheet ---
LD Flowsheet Datetime Report Generated by CPN: 10/11/2016 07:00 Datetime: 10/10/2016 20:26 NBP Sys/Tati/Mean (mmHg): 133 (QS system process) : 67 (QS system process) : 90 (QS system process) Pulse: 127 (QS system process) Respirations: 16 (Beena Livia, RN) Temperature (F): 99.7 (Beena Bhakta RN) Temperature (C): 37.6 (QS system process) Temperature Route: Oral (Beena Livia, RN) Datetime: 10/10/2016 19:15 Respirations: 16 (Alma Partha, RN) Pain Scale: 0 (Alma Partha, RN) Pain Presence: None/Denies (Alma Partha, RN) Pain Type: N/A (Alma Partha, RN) Datetime: 10/10/2016 19:01 NBP Sys/Tati/Mean (mmHg): 135 (QS system process) : 78 (QS system process) : 98 (QS system process) Pulse: 112 (QS system process) Datetime: 10/10/2016 19:00 Respirations: 17 (Alma Partha, RN) Pain Scale: 0 (Alma Partha, RN) Pain Presence: None/Denies (Alma Partha, RN) Pain Type: N/A (Alma Partha, RN)
[2016-10-11 07:50] LABS: MEAN CORPUSCULAR HEMOGLOBIN 27.6 pg (27.0-33.4); MEAN CORPUSCULAR HGB CONC 33.1 g/dL (32.0-36.0); MEAN CORPUSCULAR VOLUME 83 fl (80-97); RED BLOOD COUNT 3.61 10^6/uL (3.72-5.28); RED CELL DISTRIBUTION WIDTH 15.5 % (11.5-14.0)
[2016-10-11] MEDS: DOCUSATE SODIUM 100 MG CAPSULE PO SCH ×2 (09:57→17:58)
[2016-10-11] MEDS: PRENATAL VITAMIN W-O CA NO5/FE FUMARATE/FA CAPSULE PO SCH (09:57)
[2016-10-11] MEDS: SENNOSIDES/DOCUSATE 8.6-50 MG 1 EACH TABLET PO SCH (09:58)
[2016-10-11] MEDS: FERROUS SULFATE 325 MG TABLET PO SCH ×2 (09:58→17:58)
--- NOTE | 2016-10-11 10:19 | PDOC PROGRESS REPORT ---
Subjective-OB Subjective: Post Delivery Day: 25 year old. Denies any needs at this time Physical Exam (OB) Vital Signs: Temp Pulse Resp BP Pulse Ox 98.0 F 97 16 119/79 99 10/11/16 08:29 10/11/16 08:29 10/11/16 08:29 10/11/16 08:29 10/11/16 08:29 Intake & Output 10/10/16 10/11/16 10/12/16 06:59 06:59 06:59 Weight 94.1 kg - Lochia Lochia Amount: Scant < 10 ml Lochia Color: Rubra/Red - Abdomen Description: Soft, Flat Hernia Present: No Bowel Sounds: Normoactive Flatus Presence: Present Stool: Yes Fundal Description: Firm, Midline Fundal Height: u/u - u/2 Objective-Diagnostic Laboratory: 10/11/16 07:36 10/11/16 07:36 WBC 14.0 H RBC 3.61 L Hgb 10.0 L Hct 30.0 L MCV 83 MCH 27.6 MCHC 33.1 RDW 15.5 H Plt Count 140 L
--- NOTE | 2016-10-11 18:00 | L&D Current Admission ---
Current Admit Datetime Report Generated by CPN: 10/11/2016 18:00 ADMISSION INFORMATION Current Admit Date/Time: 10/10/2016 05:24 (09/16/2016 21:47:Apryl Walden) Reason for Admission: Induction of Labor (09/16/2016 21:47:Apryl Walden) Chief Complaint: Scheduled Induction of Labor (10/10/2016 05:25:Apryl Walden) EGA per Dates: 39.1 (09/16/2016 21:47:QS system process) EGA per US: 39.1 (09/16/2016 21:47:QS system process) Method of Arrival: Ambulatory (09/16/2016 21:47:Apryl Walden) Admitted From: Home (09/16/2016 21:47:Apryl Walden) Records Available: Yes (09/16/2016 21:47:Apryl Walden) General Admission Information: Reviewed (09/16/2016 21:47:Apryl Walden) General Admission Reviewed By: Ki Walden Rn (09/16/2016 21:47:Apryl Walden) BELONGINGS/ADVANCED DIRECTIVES Other Belongings: see consent sheet (09/16/2016 21:47:Apryl Walden) LEARNING ASSESSMENT Knowledge Level: Understands L_D Process (09/16/2016 21:47:Apryl Drivr) Barriers to Learning: None (09/16/2016 21:47:Apryl Drivr) Learning Readiness: Motivated (09/16/2016 21:47:Apryl Drivr) Learns Best By: 1 to 1 Instruction (09/16/2016 21:47:Apryl Drivr) Learning Needs: Labor and Delivery Process (09/16/2016 21:47:Apryl Walden) DOMESTIC VIOLANCE SCREENING Dom Viol Threatened/Hurt: No (09/16/2016 21:47:Apryl Walden) Hx of Abuse/Neglect past 2yrs: No (09/16/2016 21:47:Apryl Walden) Feel Unsafe Going Home: No (09/16/2016 21:47:Apryl Walden) Addt'l Observ Indicating Abuse: No (09/16/2016 21:47:Apryl Walden) Reason Unable to Complete Screen: N/A, Screen Completed (09/16/2016 21:47:Apryl Walden) Considered Personal Harm/Suicide: No (09/16/2016 21:47:Apryl Walden) NUTRITIONAL/FUNCTIONAL SCREENING Problem with Appetite >5 Days: No (09/16/2016 21:47:Apryl Walden) Chew/Swallow Difficulties: No (09/16/2016 21:47:Apryl Walden) Inappropriate Wt Gain/Loss: No (09/16/2016 21:47:Apryl Walden) Presence Skin Breakdown/Ulcer: No (09/16/2016 21:47:Apryl Walden) Special Diet: No (09/16/2016 21:47:Apryl Walden) Pt Requests Digital Solutions Architect Visit: No (09/16/2016 21:47:Apryl Walden) Hx of Any of the Following?: N/A (09/16/2016 21:47:Apryl Walden) New Diagnosis of: N/A (09/16/2016 21:47:Apryl Walden) Requires Assist w/Ambulation: No (09/16/2016 21:47:Apryl Walden) Uses Assist Device to Ambulate: No (09/16/2016 21:47:Apryl Walden) Pt Requires Help w/ADL's: No (09/16/2016 21:47:Apryl Walden)
--- NOTE | 2016-10-11 18:00 | L&D General Admission ---
General Admit Datetime Report Generated by CPN: 10/11/2016 18:00 INFORMATION Patient Age: 25 (09/16/2016 21:15:QS system process) EDC: 10/16/2016 00:00 (09/16/2016 21:19:Cassie Do RN) EDC per Ultrasound: 10/16/2016 00:00 (09/16/2016 21:19:Cassie Do RN) : 3 (09/16/2016 21:19:Beena Bhakta RN) Para: 1 (09/16/2016 22:56:Marlene Omalley RN) Term: 1 (09/16/2016 21:19:Beena Bhakta RN) : 0 (09/16/2016 21:19:Beena Bhakta RN) Spontaneous Abortions: 1 (09/16/2016 21:19:Beena Bhakta RN) Induced Abortions: 0 (09/16/2016 21:19:Beena Bhakta RN) Livin (09/16/2016 21:19:Beena Bhakta RN) Cesareans: 0 (09/16/2016 21:19:Beena Bhakta RN) VBACs: 0 (09/16/2016 21:19:Beena Bhakta RN) Ectopic: 0 (09/16/2016 21:19:Beena Bhakta RN) Multiple Births: 0 (09/16/2016 21:19:Beena Bhakta RN) Baby, Number in Womb: 1 (09/16/2016 22:56:Marlene Omalley RN) CARE Primary Inspector Eyeglass Frames: [facility] (09/16/2016 21:19:Marlene Omalley RN) Month of 1st Visit: February 2016 (09/16/2016 21:19:Marlene Omalley RN) Adequate Care: Yes (09/16/2016 21:19:Marlene Omalley RN) Height (in): 63 (10/11/2016 11:05:QS system process) ALLERGIES Medication Allergy: Yes (09/16/2016 21:19:Beena Bhakta RN) Medication Allergies: peanut (02/08/2014); adhesive (02/08/2014) (09/16/2016 21:15:QS system process) Latex Allergy: No Latex Allergies (09/16/2016 21:19:Marlene Omalley RN) Food Allergies: Peanut (09/16/2016 21:19:Marlene Omalley RN) Environmental Allergies: N/A (09/16/2016:19:Marlene Omalley RN) COMMUNICATION Primary Language: Citizen Of [place] (09/16/2016:19:Marlene Omalley RN) Medical Tx Preferred Language: Citizen Of [place] (09/16/2016 21:19:Marlene Omalley RN) Communication Barrier(s): None (09/16/2016::Marlene Omalley RN) DEMOGRAPHICS Address: [address] [place] [id number] (09/16/2016 21:15:QS system process) Zipcode: [address] (09/16/2016 21:15:QS system process) Home (09/16/2016 21:15:QS system process) SSN: [id number] (09/16/2016 21:15:QS system process) Next of Kin Name: FRANCISCO J TINSLEY (09/16/2016 21:15:QS system process) Next of Kin (09/16/2016 21:15:QS system process) Next of Kin Relationship: SPO (09/16/2016 21:15:QS system process) Date of : 1990 (09/16/2016 21:15:QS system process) Marital Status: (09/16/2016 21:15:QS system process) Sex: Female (09/16/2016 21:15:QS system process) Race: (09/16/2016 21:15:QS system process) Ethnicity: Non- or (09/16/2016 21:15:QS system process) Episcopalian: Jewish (09/16/2016 21:15:QS system process) FOB Involved: Yes (09/16/2016:19:Marlene Omalley RN) Father of Baby Name: Francisco J Tinsley (09/16/2016 21:19:Marlene Omalley RN) DRUG AND ALCOHOL USE Alcohol: No (09/16/2016 21:19:Marlene Omalley RN) Cigarettes: Former Smoker. [id number] (09/16/2016 21:19:Marlene Omalley RN) Marijuana: No (09/16/2016 21:19:Marlene Omalley RN) Cocaine: No (09/16/2016 21:19:Marlene Omalley RN) Other Illicit Drugs: No (09/16/2016:19:Marlene Omalley RN) VACCINE HISTORY Influenza Vaccine: No (09/16/2016 21:19:Marlene Omalley RN) Pneumococcal Vaccine: Yes (09/16/2016 21:19:Marlene Omalley RN) Tetanus Vaccine: Yes (09/16/2016 21:19:Marlene Omalley RN) Tdap Vaccine: Yes (09/16/2016 21:19:Marlene Omalley RN) Hepatitis B Vaccine: Yes (09/16/2016 21:19:Marlene Omalley RN) Cement Sack Breaker: [facility] (09/16/2016 21:19:Marlene Omalley RN) Feeding Preference: Breast (09/16/2016 21:19:Marlene Omalley RN) Benefit of Breast Feed Discussed: Yes (09/16/2016 21:19:Marlene Omalley RN) Circumcision: Yes (09/16/2016 21:19:Marlene Omalley RN) Classes Attended: No (09/16/2016 21:19:Marlene Omalley RN) Tubal Ligation: No (09/16/2016 21:19:Marlene Omalley RN) Tubal Authorization Signed: N/A (09/16/2016 21:19:Marlene Omalley RN) Consent: N/A (09/16/2016 21:19:Marlene Omalley RN) Consent Signed: N/A (09/16/2016 21:19:Marlene Omalley RN) Pain Management Plans: Epidural (09/16/2016 21:19:Marlene Omalley RN) Plans for Labor and Delivery: None (09/16/2016 21:19:Marlene Omalley RN) Support Person: Francisco J Tinsley (09/16/2016 21:19:Marlene Omalley RN) Support Person Relationship: (09/16/2016 21:19:Marlene Omalley RN) Cultural/Spritual Practice: No (09/16/2016 21:19:Marlene Omalley RN) Spir/Cult Dietary Needs: Yes (09/16/2016 21:19:Marlene Omalley RN) Describe Dietary Needs: No red meat or pork (09/16/2016 21:19:Marlene Omalley RN) LIVING SITUATION/DISCHARGE PLAN Living Arrangements: House (09/16/2016 21:19:Marlene Omalley RN) Adequate Access to:: Electric; Heat; Refrigeration; Plumbing/Running water; Phone; Transportation (09/16/2016 21:19:Marlene Omalley RN) WIC Program: No (09/16/2016 21:19:Marlene Omalley RN) Discharge Alligator Hunter Person: Francisco J Tinsley (09/16/2016 21:19:Marlene Omalley RN) Person to Help after Discharge: Francisco J Tinsley (09/16/2016 21:19:Marlene Omalley RN) Currently Using Commun Resources: No (09/16/2016 21:19:Marlene Omalley RN) Outside Agency/Van Owner Operator: No (09/16/2016 21:19:Marlene Omalley RN) Car Seat for Discharge: No (09/16/2016 21:19:Marlene Omalley RN) Adoption Requested: No (09/16/2016 21:19:Marlene Omalley RN) Pt Contact w/ Post : N/A (09/16/2016 21:19:Marlene Omalley RN) LABS Blood Type: O Positive (09/16/2016 21:19:Beena Bhakta RN) Antibody Screen: negative (09/16/2016 21:19:Beena Bhakta RN) Rho(G) this : Not Applicable (09/16/2016 21:19:Janel Maurer RN) Hemoglobin: 10.0 L (10/11/2016 07:36:QS system process) Hematocrit: 30.0 L (10/11/2016 07:36:QS system process) MCV: 83 (10/11/2016 07:36:QS system process) Group Beta Strep: Positive (09/16/2016 21:19:Janel Maurer RN) Gonorrhea: Negative (09/16/2016 21:19:Beena Bhakta RN) Chlamydia: Negative (09/16/2016 21:19:Beena Bhakta RN) RPR/VDRL: Nonreactive (09/16/2016 21:19:Beena Bhakta RN) Hepatitis B: Negative (09/16/2016 21:19:Beena Bhakta RN) Rubella: Non-Immune (09/16/2016 21:19:Beena Bhakta RN) Rubella Titer: 0.97 (09/16/2016 21:19:Beena Bhakta RN) OB/PREVIOUS HISTORY Previous Procedures: Ultrasound; NST (09/16/2016 21:19:Marlene Omalley RN) Current Procedures: Ultrasound; NST (09/16/2016 21:19:Marlene Omalley RN) History of Previous : No (09/16/2016 21:19:Marlene Omalley RN) History of Gestational Diabetes: No (09/16/2016 21:19:Marlene Omalley RN) History of PIH: Yes (09/16/2016 21:19:Marlene Omalley RN) History of Incompetent Cervix: No (09/16/2016 21:19:Marlene Omalley RN) History of Placenta Previa/Abrup: No (09/16/2016 21:19:Marlene Omalley RN) History of Macrosomia: No (09/16/2016 21:19:Marlene Omalley RN) History of IUGR: No (09/16/2016 21:19:Marlene Omalley RN) History of Hemorrhage: No (09/16/2016 21:19:Janel Maurer RN) History of Loss/Stillborn: No (09/16/2016 21:19:Marlene Omalley RN) History of : No (09/16/2016 21:19:Marlene Omalley RN) History of D (Rh) Sensitization: No (09/16/2016 21:19:Marlene Omalley RN) History Recurrent Loss/Stillborn: No (09/16/2016 21:19:Marlene Omalley RN) History Depression/PP Depression: No (09/16/2016 21:19:Marlene Omalley RN) History of Uterine Anomaly/JAYANT: No (09/16/2016 21:19:Marlene Omalley RN) History of Infertility: No (09/16/2016 21:19:Marlene Omalley RN) History of ART Treatment: No (09/16/2016 21:19:Marlene Omalley RN) History of JAYANT: No (09/16/2016 21:19:Marlene Omalley RN) Comments Obstetrical History: G1 - 2012, miscarriage G2 - 2013, , girl 40.5 weeks G3 - current (09/16/2016 21:19:Marlene Omalley RN) MEDICAL HISTORY Med Hx Diabetes: No (09/16/2016 21:19:Marlene Omalley RN) Med Hx Hypertension: No (09/16/2016 21:19:Marlene Omalley RN) Med Hx Heart Disease: No (09/16/2016 21:19:Marlene Omalley RN) Med Hx Autoimmune Disorder: No (09/16/2016 21:19:Marlene Omalley RN) Med Hx Kidney Disease/UTI: No (09/16/2016 21:19:Marlene Omalley RN) Med Hx Neurologic/Epilepsy: No (09/16/2016 21:19:Marlene Omalley RN) Med Hx Psychiatric Disorders: No (09/16/2016 21:19:Marlene Field, RN) Med Hx Hepatitis/Liver Disease: No (09/16/2016 21:19:Marlene Omalley RN) Med Hx Varicosities/Phlebitis: No (09/16/2016 21:19:Marlene Omalley RN) Med Hx Thyroid Dysfunction: No (09/16/2016 21:19:Marlene Omalley RN) Med Hx Trauma/Violence: No (09/16/2016 21:19:Marlene Omalley RN) Med Hx Blood Transfusion: No (09/16/2016 21:19:Marlene Omalley RN) Med Hx Pulmonary (Asthma,TB): Yes (09/16/2016 21:19:Marlene Omalley RN) Med Hx Breast: No (09/16/2016 21:19:Marlene Omalley RN) Med Hx SELF SEALING FUEL TANK REPAIRER Surgery: No (09/16/2016 21:19:Marlene Omalley RN) Med Hx Hospitalization/Surgery: No (09/16/2016 21:19:Marlene Omalley RN) Med Hx Anesthetic Complications: No (09/16/2016 21:19:Marlene Omalley RN) Med Hx Abnormal Pap Smear: No (09/16/2016 21:19:Marlene Omalley RN) Other Medical Diseases: No (09/16/2016 21:19:Marlene Omalley RN) Med Hx Significant Family Hx: No (09/16/2016 21:19:Marlene Omalley, RN) Details of Med/Surg Hx: Asthma - exercise induced (09/16/2016 21:19:Marlene Omalley RN) INFECTIOUS HISTORY Inf Hx Gonorrhea: No (09/16/2016 21:19:Marlene Omalley RN) Inf Hx Chlamydia: No (09/16/2016:19:Marlene Omalley RN) Inf Hx Syphilis: No (09/16/2016 21:19:Marlene Omalley RN) Inf Hx HIV/AIDS: No (09/16/2016 21:19:Marlene Omalley RN) Inf Hx Human Papilloma Virus: No (09/16/2016 21:19:Marlene Omalley RN) Inf Hx Pt/Partner Genital Herpes: No (09/16/2016 21:19:Marlene Omalley RN) Inf Hx Tuberculosis/Exposure: No (09/16/2016 21:19:Marlene Omalley RN) Inf Hx Hepatitis B,C: No (09/16/2016 21:19:Marlene Omalley RN) Inf Hx Rash or Viral Illness: No (09/16/2016 21:19:Marlene Omalley RN) GENETIC HISTORY Gen Hx Age >=35 at KEITH: No (09/16/2016 21:19:Marlene Omalley RN) Gen Hx Thalassemia: No (09/16/2016 21:19:Marlene Omalley RN) Gen Hx Congenital Heart Defect: No (09/16/2016 21:19:Marlene Omalley RN) Gen Hx Neural Tube Defect: No (09/16/2016 21:19:Marlene Omalley RN) Gen Hx Down's Syndrome: No (09/16/2016 21:19:Marlene Omalley RN) Gen Hx Sean-Sachs: No (09/16/2016 21:19:Marlene Omalley RN) Gen Hx Naheed: No (09/16/2016 21:19:Marlene Omalley RN) Gen Hx Familial Dysautonomia: No (09/16/2016 21:19:Marlene Omalley RN) Gen Hx Sickle Cell Disease/Trait: No (09/16/2016 21:19:Marlene Omalley RN) Gen Hx Hemophilia/Blood Disorder: No (09/16/2016 21:19:Marlene Omalley RN) Gen Hx Muscular Dystrophy: No (09/16/2016 21:19:Marlene Omalley RN) Gen Hx Cystic Fibrosis: No (09/16/2016 21:19:Marlene Omalley RN) Gen Hx Huntingtons Chorea: No (09/16/2016 21:19:Marlene Omalley RN) Gen Hx Mental Retardation/Autism: No (09/16/2016 21:19:Marlene Omalley RN) Gen Hx Tested for Fragile X: No (09/16/2016 21:19:Marlene Omalley RN) Gen Hx Other Inher/Chromosomal: No (09/16/2016 21:19:Marlene Omalley RN) Gen Hx Maternal Metabolic DO: No (09/16/2016 21:19:Marlene Omalley RN) Gen Hx Pt Father or FOB Defect: No (09/16/2016 21:19:Marlene Omalley RN) Gen Hx Other Genetic History: No (09/16/2016 21:19:Marlene Omalley RN) Gen Hx Drugs/Meds since LMP: Yes (09/16/2016 21:19:Marlene Omalley RN) Gen Hx Medications: , Zantac, and Tylenol (09/16/2016 21:19:Marlene Omalley RN)
--- NOTE | 2016-10-11 18:15 | L&D Care Plan ---
LD CARE PLANS Datetime Report Generated by CPN: 10/11/2016 18:15 Datetime: 10/10/2016 05:01 Pain State: Risk For (Janel Maurer RN) Related To: Labor and Delivery Process; Treatment and Procedures; Post (Janel Maurer RN) Goal(s): Patients Pain will be Assessed and Managed; Patient will Verbalize Adequate Relief of Pain or the Ability to [place] with Current Pain (Janel Maurer RN) Interventions: Assess Pain Severity on Scale of 0 (None) to 5 (Severe); Assess Type, Location and Intensity of Pain Each Time Client Reports Discomfort and Notify Provider if Unusal Pain Develops; Encourage Proper Breathing and Relaxation Techniques; Offer Alternatives Such as Repositioning, Calm Environment, Massages, Diversional Activities, Ice Pack, Splinting, and Ambulation; Administer Analgesics as Ordered; Assist with Epidural Placement as Appropriate; Evaluate Therapeutic Effectiveness of Medication and Treatments (Janel Maurer RN) Outcome: Patient will Report Absence or Relief of Pain Consistent with Established Pain Goal (Janel Maurer RN) Status: Ongoing (Janel Maurer RN) Outcome: Patient will have a Decrease in Signs and Symptoms of Discomfort (Janel Maurer RN) Status: Ongoing (Janel Maurer RN) Outcome: Pain will be Controlled During Procedures (Janel Maurer RN) Status: Ongoing (Janel Maurer RN) Anxiety State: Risk For (Janel Maurer RN) Related To: Labor and Delivery Process; Perceived or Actual Threat to ; Situational Crisis; Significant Life Event (Janel Maurer RN) Goal(s): Patient will have Decreased Anxiety and be able to Function at Acceptable Levels (Janel Maurer RN) Interventions: Assess Verbal and Nonverbal Behavioral Indicators of Anxiety; Assist Patient to Identify and Verbalize Symptoms of Anxiety; Identify and Demonstrate Techniques to Control Anxiety; Assist Patient with Coping Mechanisms to Manage Anxiety; Provide Theraputic Touch for the Patient; Explain to Patient, Using a Calm Reassuring Approach and Nonmedical Terms, All Activities, Procedures, and Concerns; Instruct Patient and Family about Post Discharge Care, Limitations, Symptoms to Report and Resources Available (Janel Maurer RN) Outcome: Patient will Identify, Verbalize and Demonstrate Techniques to Control Anxiety (Janel Maurer RN) Status: Ongoing (Janel Maurer RN) Outcome: Patient's Posture, Facial Expressions, Gestures and Activity Level will Reflect Decreased Anxiety (Janel Maurer RN) Status: Ongoing (Janel Maurer RN) Outcome: Patient will Verbalize a Sense of Control and/or Acceptance of the Situation (Janel Maurer RN) Status: Ongoing (Janel Maurer RN) Outcome: Patient will Identify and Utilize Support Person (Janel Maurer RN) Status: Ongoing (Janel Maurer RN) Knowledge Deficit State: Risk For (Janel Maurer RN) Related To: Labor and Delivery Process; Treatment and Procedures; Impending Alterations in Family Dynamics (Janel Maurer RN) Goal(s): Patient will Accurately Verbalize Understanding of Plan of Care and Treatment; Patient and Family will Accurately Verbalize Understanding of the Disease Process (Janel Maurer RN) Interventions: Assess Motivation and Willingness of Patient/Family to Learn; Assess Preferred Learning Mode: One to One Instruction, Reading, Videos, Group Discussion or Demonstration; Assess Barriers to Learning: Pain, Emotional State, Language Barrier, Cognitive Impairment, Visual or Hearing Deficits; Assess Patient and Family Knowledge of Disease Process, Medications and Treatment; Discuss Therapy and/or Treatment Options, Describe Rationale Behind Management, Therapy and Treatment Recommendations; Instruct Patient and Family on Signs and Symptoms to Report; Instruct Patient and Family on Medication Effects and Side Effects; Provide Appropriate and Timely Education Using Multiple Techniques; Provide Patient and Family with Support Group Information and Resources; Give Clear and Thorough Explanations and Demonstrations (Janel Maurer RN) Outcome: Patient and Family will Verbalize Understanding of Condition, Treatment and Signs and Symptoms to Report (Janel Maurer RN) Status: Ongoing (Janel Maurer RN) Outcome: Patient will Identify Perceived Learning Needs and Express Motivation to Learn (Janel Maurer RN) Status: Ongoing (Janel Maurer RN) Outcome: Patient will Verbalize Understanding of Desired Content, and/or Performs Desired Skill Prior to Discharge (Janel Maurer RN) Status: Ongoing (Janel Maurer RN) Infection State: Risk For (Janel Maurer RN) Related To: Prolonged Labor or Induction; Invasive Procedures; Altered Tissue Integrity (Janel Maurer RN) Goal(s): The Patient will be Free of Infection, Vital Signs Stable and Lab Work within Normal Parameters (Janel Maurer RN) Interventions: Instruct and Reinforce Proper Handwashing, Hygiene, and Care Techniques to Patient and Family; Monitor Vital Signs; Monitor Patient for the Following Signs of Infection: Fever, Abdominal Tenderness, Unusual Discharge; Monitor Aminiotic Fluid, Urine and Lochia for Color and Odor; Observe Wounds, Incisions and Invasive Line Sites for Redness, Drainage and Edema; Assess IV Sites per Hospital Policy; Monitor Lab and Test Results and Notify Provider of Abnormal Findings; Assess Nutritional Status and Promote Good Nutrition (Janel Maurer RN) Outcome: Patient will Remain Free of Infection (Janel Maurer RN) Status: Ongoing (Janel Maurer RN) Outcome: Infection will be Recognized Early to Allow for Prompt Treatment (Janel Maurer RN) Status: Ongoing (Janel Maurer RN) Outcome: Patient will have Vital Signs Within Expected Range (Janel Maurer RN) Status: Ongoing (Janel Maurer RN) Fluid Volume State: Risk For (Janel Maurer RN) Related To: Prolonged Labor or Induction (Janel Maurer RN) Goal(s): Patient will Achieve and Maintain a Balanced Fluid Volume Status; Hemodynamically Stable (Janle Maurer RN) Interventions: Monitor Vital Signs; Auscultate Breath Sounds; Monitor Patient for Skin Turgor, Mucous Membranes, Dry Skin, Weakness, Headaches and Confusion; Provide Oral Fluids as Ordered; Initiate and Maintain Intravenous Fluids as Ordered; Monitor Intake and Output as Indicated Per Patient Status; Accurately Measure Blood Loss; Monitor Lab and Test Results as Obtained and Notify Provider of Abnormal Findings; Monitor Patient's Weight (Janel Maurer RN) Outcome: Patient will have Clear Lung Sounds (Janel Maurer RN) Status: Ongoing (Janel Maurer RN) Outcome: Patient will have Vital Signs within Expected Range (Janel Maurer RN) Status: Ongoing (Janel Maurer RN) Outcome: Urine Output will be within Expected Range (Janel Maurer RN) Status: Ongoing (Janel Maurer RN) Outcome: Patient will have Minimal Generalized or Upper Extremity Edema (Janel Maurer RN) Status: Ongoing (Janel Maurer, SHARATH) Injury State: Risk For (Janel Maurer RN) Related To: Labor and Delivery Process (Janel Maurer RN) Goal(s): Patient will Remain Free from Injury (Janel Maurer RN) Interventions: Monitoring as per Hospital Protocol; Assess Neurological Status; Perform Risk Assessment of Patients with Induction and ; Perform Fall Risk Assessment and Prevention per Hospital Protocol; Perform DVT Risk Assessment and Prophylaxis per Hospital Protocol; Ensure that Oxygen, Suction, and Resuscitation Medications and Equipment are Readily Available; Confirm Patient ID Prior to Procedure(s) and Medication Administration per Hospital Policy (Janel Maurer RN) Outcome: Successful Fall Risk Prevention (Janel Maurer RN) Status: Ongoing (Janel Maurer RN) Outcome: Patient will Deliver without Adverse [place]ela (Janel Maurer RN) Status: Ongoing (Janel Maurer RN) Outcome: Patient's Neurological Status will Remain Stable (Janel Maurer RN) Status: Ongoing (Janel Maurer, SHARATH) Impaired Skin Integrity State: Risk For (Janel Maurer RN) Related To: Vaginal Delivery; Prolonged Bedrest; Altered Tissue Integrity; Invasive Procedures (Janel Maurer RN) Goal(s): Patient will Maintain Optimal Skin Integrity, Free of Breakdown, Injury or Infection (Janel Maurer RN) Interventions: Complete Screening for Pressure Ulcer Risk and Initiate Protocol per Hospital Policy; Monitor Site of Skin Impairment for Color Changes, Redness, Swelling, Warmth, Pain or Other Signs of Infection; Encourage and Assist with Position Changes; Monitor Patient's Mobility Status; Provide Adequate Nutrition and Fluids; Teach Patient Appropriate Hygienic Care; Teach Patient/Family Skin Care Management (Janel Mauerr RN) Outcome: Patient will not have Evidence of Injury Such as Skin Breakdown, Scrapes, Cuts, or Bruising (Janel Maurer RN) Status: Ongoing (Janel Maurer RN) Outcome: Patient will Report Any Altered Sensation or Pain at Site of Skin Impairment (Janel Maurer RN) Status: Ongoing (Janel Maurer RN) Outcome: Patients Incisions and Wounds will be without Signs or Symptoms of Infection (Janel Maurer RN) Status: Ongoing (Janel Maurer RN) Outcome: Patient will Demonstrate Understanding of Plan to Heal Skin and Prevent Reinjury and Verbalize Risk Factors (Janel Maurer RN) Status: Ongoing (Janel Maurer RN)
[2016-10-12] MEDS: IBUPROFEN 800 MG TABLET PO SCH (05:38)
--- NOTE | 2016-10-12 06:01 | L&D General Admission ---
General Admit Datetime Report Generated by CPN: 10/12/2016 06:00 INFORMATION Patient Age: 25 (09/16/2016 21:15:QS system process) EDC: 10/16/2016 00:00 (09/16/2016 21:19:Cassie Do RN) EDC per Ultrasound: 10/16/2016 00:00 (09/16/2016 21:19:Cassie Do RN) : 3 (09/16/2016 21:19:Beena Bhakta RN) Para: 1 (09/16/2016 22:56:Marlene Omalley RN) Term: 1 (09/16/2016 21:19:Beena Bhakta RN) : 0 (09/16/2016 21:19:Beena Bhakta RN) Spontaneous Abortions: 1 (09/16/2016 21:19:Beena Bhakta RN) Induced Abortions: 0 (09/16/2016 21:19:Beena Bhakta RN) Livin (09/16/2016 21:19:Beena Bhakta RN) Cesareans: 0 (09/16/2016 21:19:Beena Bhakta RN) VBACs: 0 (09/16/2016 21:19:Beena Bhakta RN) Ectopic: 0 (09/16/2016 21:19:Beena Bhakta RN) Multiple Births: 0 (09/16/2016 21:19:Beena Bhakta RN) Baby, Number in Womb: 1 (09/16/2016 22:56:Marlene Omalley RN) CARE Primary Fine Sander: [email or web address] (09/16/2016 21:19:Marlene Omalley RN) Month of 1st Visit: February 2016 (09/16/2016 21:19:Marlene Omalley RN) Adequate Care: Yes (09/16/2016 21:19:Marlene Omalley RN) Height (in): 63 (10/11/2016 11:05:QS system process) ALLERGIES Medication Allergy: Yes (09/16/2016 21:19:Beena Bhakta RN) Medication Allergies: peanut (02/08/2014); adhesive (02/08/2014) (09/16/2016 21:15:QS system process) Latex Allergy: No Latex Allergies (09/16/2016 21:19:Marlene Omalley RN) Food Allergies: Peanut (09/16/2016 21:19:Marlene Omalley RN) Environmental Allergies: N/A (09/16/2016:19:Marlnee Omalley RN) COMMUNICATION Primary Language: [place] (09/16/2016:19:Marlene Omalley RN) Medical Tx Preferred Language: [place] (09/16/2016 21:19:Marlene Omalley RN) Communication Barrier(s): None (09/16/2016::Marlene Omalley RN) DEMOGRAPHICS Address: [address] [place] [id number] (09/16/2016 21:15:QS system process) Zipcode: [address] (09/16/2016 21:15:QS system process) Home (09/16/2016 21:15:QS system process) SSN: [id number] (09/16/2016 21:15:QS system process) Next of Kin Name: FRANCISCO J TINSLEY (09/16/2016 21:15:QS system process) Next of Kin (09/16/2016 21:15:QS system process) Next of Kin Relationship: SPO (09/16/2016 21:15:QS system process) Date of : 1990 (09/16/2016 21:15:QS system process) Marital Status: (09/16/2016 21:15:QS system process) Sex: Female (09/16/2016 21:15:QS system process) Race: (09/16/2016 21:15:QS system process) Ethnicity: Non- or (09/16/2016 21:15:QS system process) Confucianist: Christian (09/16/2016 21:15:QS system process) FOB Involved: Yes (09/16/2016:19:Marlene Omalley RN) Father of Baby Name: Francisco J Tinsley (09/16/2016 21:19:Marlene Omalley RN) DRUG AND ALCOHOL USE Alcohol: No (09/16/2016 21:19:Marlene Omalley RN) Cigarettes: Former Smoker. [id number] (09/16/2016 21:19:Marlene Omalley RN) Marijuana: No (09/16/2016 21:19:Marlene Omalley RN) Cocaine: No (09/16/2016 21:19:Marlene Omalley RN) Other Illicit Drugs: No (09/16/2016:19:Marlene Omalley RN) VACCINE HISTORY Influenza Vaccine: No (09/16/2016 21:19:Marlene Omalley RN) Pneumococcal Vaccine: Yes (09/16/2016 21:19:Marlene Omalley RN) Tetanus Vaccine: Yes (09/16/2016 21:19:Marlene Omalley RN) Tdap Vaccine: Yes (09/16/2016 21:19:Marlene Omalley RN) Hepatitis B Vaccine: Yes (09/16/2016 21:19:Marlene Omalley RN) Waste Management Engineer: [facility] (09/16/2016 21:19:Marlene Omalley RN) Feeding Preference: Breast (09/16/2016 21:19:Marlene Omalley RN) Benefit of Breast Feed Discussed: Yes (09/16/2016 21:19:Marlene Omalley RN) Circumcision: Yes (09/16/2016 21:19:Marlene Omalley RN) Classes Attended: No (09/16/2016 21:19:Marlene Omalley RN) Tubal Ligation: No (09/16/2016 21:19:Marlene Omalley RN) Tubal Authorization Signed: N/A (09/16/2016 21:19:Marlene Omalley RN) Consent: N/A (09/16/2016 21:19:Marlene Omalley RN) Consent Signed: N/A (09/16/2016 21:19:Marlene Omalley RN) Pain Management Plans: Epidural (09/16/2016 21:19:Marlene Omalley RN) Plans for Labor and Delivery: None (09/16/2016 21:19:Marlene Omalley RN) Support Person: Francisco J Tinsley (09/16/2016 21:19:Marlene Omalley RN) Support Person Relationship: (09/16/2016 21:19:Marlene Omalley RN) Cultural/Spritual Practice: No (09/16/2016 21:19:Marlene Omalley RN) Spir/Cult Dietary Needs: Yes (09/16/2016 21:19:Marlene Omalley RN) Describe Dietary Needs: No red meat or pork (09/16/2016 21:19:Marlene Omalley RN) LIVING SITUATION/DISCHARGE PLAN Living Arrangements: House (09/16/2016 21:19:Marlene Omalley RN) Adequate Access to:: Electric; Heat; Refrigeration; Plumbing/Running water; Phone; Transportation (09/16/2016 21:19:Marlene Omalley RN) WIC Program: No (09/16/2016 21:19:Marlene Omalley RN) Discharge Setter Automatic Spinning Lathe Person: Francisco J Tinsley (09/16/2016 21:19:Marlene Omalley RN) Person to Help after Discharge: Francisco J Tinsley (09/16/2016 21:19:Marlene Omalley RN) Currently Using Commun Resources: No (09/16/2016 21:19:Marlene Omalley RN) Outside Agency/Hadoop Application Developer: No (09/16/2016 21:19:Marlene Omalley RN) Car Seat for Discharge: No (09/16/2016 21:19:Marlene Omalley RN) Adoption Requested: No (09/16/2016 21:19:Marlene Omalley RN) Pt Contact w/ Post : N/A (09/16/2016 21:19:Marlene Omalley RN) LABS Blood Type: O Positive (09/16/2016 21:19:Beena Bhakta RN) Antibody Screen: negative (09/16/2016 21:19:Beena Bhakta RN) Rho(G) this : Not Applicable (09/16/2016 21:19:Janel Maurer RN) Hemoglobin: 10.0 L (10/11/2016 07:36:QS system process) Hematocrit: 30.0 L (10/11/2016 07:36:QS system process) MCV: 83 (10/11/2016 07:36:QS system process) Group Beta Strep: Positive (09/16/2016 21:19:Janel Maurer RN) Gonorrhea: Negative (09/16/2016 21:19:Beena Bhakta RN) Chlamydia: Negative (09/16/2016 21:19:Beena Bhakta RN) RPR/VDRL: Nonreactive (09/16/2016 21:19:Beena Bhakta RN) Hepatitis B: Negative (09/16/2016 21:19:Beena Bhakta RN) Rubella: Non-Immune (09/16/2016 21:19:Beena Bhakta RN) Rubella Titer: 0.97 (09/16/2016 21:19:Beena Bhakta RN) OB/PREVIOUS HISTORY Previous Procedures: Ultrasound; NST (09/16/2016 21:19:Marlene Omalley RN) Current Procedures: Ultrasound; NST (09/16/2016 21:19:Marlene Omalley RN) History of Previous : No (09/16/2016 21:19:Marlene Omalley RN) History of Gestational Diabetes: No (09/16/2016 21:19:Marlene Omalley RN) History of PIH: Yes (09/16/2016 21:19:Marlene Omalley RN) History of Incompetent Cervix: No (09/16/2016 21:19:Marlene Omalley RN) History of Placenta Previa/Abrup: No (09/16/2016 21:19:Marlene Omalley RN) History of Macrosomia: No (09/16/2016 21:19:Marlene Omalley RN) History of IUGR: No (09/16/2016 21:19:Marlene Omalley RN) History of Hemorrhage: No (09/16/2016 21:19:Janel Maurer RN) History of Loss/Stillborn: No (09/16/2016 21:19:Marlene Omalley RN) History of : No (09/16/2016 21:19:Marlene Omalley RN) History of D (Rh) Sensitization: No (09/16/2016 21:19:Marlene Omalley RN) History Recurrent Loss/Stillborn: No (09/16/2016 21:19:Marlene Omalley RN) History Depression/PP Depression: No (09/16/2016 21:19:Marlene Omalley RN) History of Uterine Anomaly/JAYANT: No (09/16/2016 21:19:Marlene Omalley RN) History of Infertility: No (09/16/2016 21:19:Marlene Omalley RN) History of ART Treatment: No (09/16/2016 21:19:Marlene Omalley RN) History of JAYANT: No (09/16/2016 21:19:Marlene Omalley RN) Comments Obstetrical History: G1 - 2012, miscarriage G2 - 2013, , girl 40.5 weeks G3 - current (09/16/2016 21:19:Marlene Omalley RN) MEDICAL HISTORY Med Hx Diabetes: No (09/16/2016 21:19:Marlene Omalley RN) Med Hx Hypertension: No (09/16/2016 21:19:Marlene Omalley RN) Med Hx Heart Disease: No (09/16/2016 21:19:Marlene Omalley RN) Med Hx Autoimmune Disorder: No (09/16/2016 21:19:Marlene Omalley RN) Med Hx Kidney Disease/UTI: No (09/16/2016 21:19:Marlene Omalley RN) Med Hx Neurologic/Epilepsy: No (09/16/2016 21:19:Marlene Omalley RN) Med Hx Psychiatric Disorders: No (09/16/2016 21:19:Marlene Field, RN) Med Hx Hepatitis/Liver Disease: No (09/16/2016 21:19:Marlene Omalley RN) Med Hx Varicosities/Phlebitis: No (09/16/2016 21:19:Marlene Omalley RN) Med Hx Thyroid Dysfunction: No (09/16/2016 21:19:Marlene Omalley RN) Med Hx Trauma/Violence: No (09/16/2016 21:19:Marlene Omalley RN) Med Hx Blood Transfusion: No (09/16/2016 21:19:Marlene Omalley RN) Med Hx Pulmonary (Asthma,TB): Yes (09/16/2016 21:19:Marlene Omalley RN) Med Hx Breast: No (09/16/2016 21:19:Marlene Omalley RN) Med Hx BANQUET SUPERVISOR Surgery: No (09/16/2016 21:19:Marlene Omalley RN) Med Hx Hospitalization/Surgery: No (09/16/2016 21:19:Marlene Omalley RN) Med Hx Anesthetic Complications: No (09/16/2016 21:19:Marlene Omalley RN) Med Hx Abnormal Pap Smear: No (09/16/2016 21:19:Marlene Omalley RN) Other Medical Diseases: No (09/16/2016 21:19:Marlene Omalley RN) Med Hx Significant Family Hx: No (09/16/2016 21:19:Marlene Omalley, RN) Details of Med/Surg Hx: Asthma - exercise induced (09/16/2016 21:19:Marlene Omalley RN) INFECTIOUS HISTORY Inf Hx Gonorrhea: No (09/16/2016 21:19:Marlene Omalley RN) Inf Hx Chlamydia: No (09/16/2016:19:Marlene Omalley RN) Inf Hx Syphilis: No (09/16/2016 21:19:Marlene Omalley RN) Inf Hx HIV/AIDS: No (09/16/2016 21:19:Marlene Omalley RN) Inf Hx Human Papilloma Virus: No (09/16/2016 21:19:Marlene Omalley RN) Inf Hx Pt/Partner Genital Herpes: No (09/16/2016 21:19:Marlene Omalley RN) Inf Hx Tuberculosis/Exposure: No (09/16/2016 21:19:Marlene Omalley RN) Inf Hx Hepatitis B,C: No (09/16/2016 21:19:Marlene Omalley RN) Inf Hx Rash or Viral Illness: No (09/16/2016 21:19:Marlene Omalley RN) GENETIC HISTORY Gen Hx Age >=35 at KEITH: No (09/16/2016 21:19:Marlene Omalley RN) Gen Hx Thalassemia: No (09/16/2016 21:19:Marlene Omalley RN) Gen Hx Congenital Heart Defect: No (09/16/2016 21:19:Marlene Omalley RN) Gen Hx Neural Tube Defect: No (09/16/2016 21:19:Marlene Omalley RN) Gen Hx Down's Syndrome: No (09/16/2016 21:19:Marlene Omalley RN) Gen Hx Sean-Sachs: No (09/16/2016 21:19:Marlene Omalley RN) Gen Hx Naheed: No (09/16/2016 21:19:Marlene Omalley RN) Gen Hx Familial Dysautonomia: No (09/16/2016 21:19:Marlene Omalley RN) Gen Hx Sickle Cell Disease/Trait: No (09/16/2016 21:19:Marlene Omalley RN) Gen Hx Hemophilia/Blood Disorder: No (09/16/2016 21:19:Marlene Omalley RN) Gen Hx Muscular Dystrophy: No (09/16/2016 21:19:Marlene Omalley RN) Gen Hx Cystic Fibrosis: No (09/16/2016 21:19:Marlene Omalley RN) Gen Hx Huntingtons Chorea: No (09/16/2016 21:19:Marlene Omalley RN) Gen Hx Mental Retardation/Autism: No (09/16/2016 21:19:Marlene Omalley RN) Gen Hx Tested for Fragile X: No (09/16/2016 21:19:Marlene Omalley RN) Gen Hx Other Inher/Chromosomal: No (09/16/2016 21:19:Marlene Omalley RN) Gen Hx Maternal Metabolic DO: No (09/16/2016 21:19:Marlene Omalley RN) Gen Hx Pt Father or FOB Defect: No (09/16/2016 21:19:Marlene Omalley RN) Gen Hx Other Genetic History: No (09/16/2016 21:19:Marlene Omalley RN) Gen Hx Drugs/Meds since LMP: Yes (09/16/2016 21:19:Marlene Omalley RN) Gen Hx Medications: , Zantac, and Tylenol (09/16/2016 21:19:Marlene Omalley RN)
--- NOTE | 2016-10-12 06:01 | L&D Current Admission ---
Current Admit Datetime Report Generated by CPN: 10/12/2016 06:00 ADMISSION INFORMATION Current Admit Date/Time: 10/10/2016 05:24 (09/16/2016 21:47:Apryl Walden) Reason for Admission: Induction of Labor (09/16/2016 21:47:Apryl Walden) Chief Complaint: Scheduled Induction of Labor (10/10/2016 05:25:Apryl Walden) EGA per Dates: 39.1 (09/16/2016 21:47:QS system process) EGA per US: 39.1 (09/16/2016 21:47:QS system process) Method of Arrival: Ambulatory (09/16/2016 21:47:Apryl Walden) Admitted From: Home (09/16/2016 21:47:Apryl Walden) Records Available: Yes (09/16/2016 21:47:Apryl Walden) General Admission Information: Reviewed (09/16/2016 21:47:Apryl Walden) General Admission Reviewed By: Ki Walden Rn (09/16/2016 21:47:Apryl Walden) BELONGINGS/ADVANCED DIRECTIVES Other Belongings: see consent sheet (09/16/2016 21:47:Apryl Walden) LEARNING ASSESSMENT Knowledge Level: Understands L_D Process (09/16/2016 21:47:Apryl [employer]) Barriers to Learning: None (09/16/2016 21:47:Apryl [employer]) Learning Readiness: Motivated (09/16/2016 21:47:Apryl [employer]) Learns Best By: 1 to 1 Instruction (09/16/2016 21:47:Apryl [employer]) Learning Needs: Labor and Delivery Process (09/16/2016 21:47:Apryl Walden) DOMESTIC VIOLANCE SCREENING Dom Viol Threatened/Hurt: No (09/16/2016 21:47:Apryl Walden) Hx of Abuse/Neglect past 2yrs: No (09/16/2016 21:47:Apryl Walden) Feel Unsafe Going Home: No (09/16/2016 21:47:Apryl Walden) Addt'l Observ Indicating Abuse: No (09/16/2016 21:47:Apryl Walden) Reason Unable to Complete Screen: N/A, Screen Completed (09/16/2016 21:47:Apryl Walden) Considered Personal Harm/Suicide: No (09/16/2016 21:47:Apryl Walden) NUTRITIONAL/FUNCTIONAL SCREENING Problem with Appetite >5 Days: No (09/16/2016 21:47:Apryl Walden) Chew/Swallow Difficulties: No (09/16/2016 21:47:Apryl Walden) Inappropriate Wt Gain/Loss: No (09/16/2016 21:47:Apryl Walden) Presence Skin Breakdown/Ulcer: No (09/16/2016 21:47:Apryl Walden) Special Diet: No (09/16/2016 21:47:Apryl Walden) Pt Requests Rn Heart Visit: No (09/16/2016 21:47:Apryl Walden) Hx of Any of the Following?: N/A (09/16/2016 21:47:Apryl Walden) New Diagnosis of: N/A (09/16/2016 21:47:Apryl Walden) Requires Assist w/Ambulation: No (09/16/2016 21:47:Apryl Walden) Uses Assist Device to Ambulate: No (09/16/2016 21:47:Apryl Walden) Pt Requires Help w/ADL's: No (09/16/2016 21:47:Apryl Walden)
[2016-10-12 08:31] VITALS: BP 119/74
[2016-10-12] MEDS: FERROUS SULFATE 325 MG TABLET PO SCH (09:28)
[2016-10-12] MEDS: PRENATAL VITAMIN W-O CA NO5/FE FUMARATE/FA CAPSULE PO SCH (09:28)
[2016-10-12] MEDS: DOCUSATE SODIUM 100 MG CAPSULE PO SCH (09:28)
[2016-10-12] MEDS: SENNOSIDES/DOCUSATE 8.6-50 MG 1 EACH TABLET PO SCH (09:28)
--- NOTE | 2016-10-12 10:40 | PDOC DISCHARGE SUMMARY ---
Final Diagnosis Discharge Date: 10/12/16 - Final Diagnosis (1) Vaginal delivery Is this a current diagnosis for this admission?: Yes Discharge Data - Discharge Medication Home Medications: Vit#96/Ferrous Fum/FA [ Tablet] 1 tab PO DAILY 02/08/14 Albuterol Sulfate 2 mg PO Q4 PRN 02/16/14 Ranitidine HCl [Zantac] 150 mg PO DAILY 09/16/16 Reason(s) for Admission: Induction of Labor Procedures: None Intrapartum Procedure(s): Spontaneous Vaginal Delivery Complication(s): Laceration-Labial Laceration-Degree: 1st - Moro Data Baby 1 Male at 1 minute: 8 at 5 minutes: 9 Weight: 4.026 kg Home with Mother: Yes Complications: No - Diagnosis Test Laboratory: Temp Pulse Resp BP Pulse Ox 97.8 F 93 18 119/74 100 10/12/16 08:28 10/12/16 08:28 10/12/16 08:28 10/12/16 08:02 10/12/16 08:28 10/10/16 10/10/16 10/11/16 04:57 05:10 07:36 RBC 4.29 3.61 L Hgb 12.0 10.0 L Hct 35.4 L 30.0 L Urine Opiates Screen NEGATIVE - Discharge information/Instructions Discharge Activity: Activity As Tolerated, No Lifting Over 10 Pounds, Pelvic Rest, No tub bath Discharge Diet: Regular Disposition: HOME, SELF-CARE Follow up with: [facility] in: 4
== END 2016-10-12 12:21 | disposition home or self-care (01) | DRG 775 ==
LOC: LR 04:46 → 2S 20:35
PROVIDERS: ADMIT Specialist; ATTEND Specialist
PROC: 10E0XZZ Delivery of Products of Conception, External Approach (ICD-10-PCS; principal; 2016-10-10)
PROC: 0HQ9XZZ Repair Perineum Skin, External Approach (ICD-10-PCS; 2016-10-10)
PROC: 4A1HXCZ Monitoring of Products of Conception, Cardiac Rate, External Approach (ICD-10-PCS; 2016-10-10)
PROC: 3E0P7GC Introduction of Other Therapeutic Substance into Female Reproductive, Via Natural or Artificial Opening (ICD-10-PCS; 2016-10-10)
PROC: 3E033VJ Introduction of Other Hormone into Peripheral Vein, Percutaneous Approach (ICD-10-PCS; 2016-10-10)
PROC: 3E0234Z Introduction of Serum, Toxoid and Vaccine into Muscle, Percutaneous Approach (ICD-10-PCS; 2016-10-12)
DX: O99.824 Streptococcus B carrier state complicating childbirth (principal); O70.0 First degree perineal laceration during delivery; O76 Abnormality in fetal heart rate and rhythm complicating labor and delivery; O99.52 Diseases of the respiratory system complicating childbirth; J45.909 Unspecified asthma, uncomplicated; O69.81X0 Labor and delivery complicated by cord around neck, without compression, not applicable or unspecified; Z3A.39 39 weeks gestation of pregnancy; Z37.0 Single live birth; Z91.010 Allergy to peanuts; Z23 Encounter for immunization
CPT/HCPCS: 36415; 80307; 81005; 85025; 85027; 86592; 86850; 86900; 86901; 90707; J0690; J2210; J2540; J2590; J3490

== ENCOUNTER 2018-05-21 10:13 | Emergency (ER) | payer BC, OTHER ==
--- NOTE | 2018-05-21 10:50 | RADIOLOGY REPORT (SQ) ---
EXAM DESCRIPTION: ANKLE RIGHT COMPLETE COMPLETED DATE/TIME: 05/21/2018 10:42 am REASON FOR STUDY: rt ankle pain s/p injury COMPARISON: None. NUMBER OF VIEWS: Three views. TECHNIQUE: AP, lateral, and oblique radiographic images acquired of the right ankle. LIMITATIONS: None. FINDINGS: MINERALIZATION: Normal. BONES: No acute fracture or dislocation. No worrisome bone lesions. JOINTS: No effusions. SOFT TISSUES: No soft tissue swelling. No foreign body. OTHER: No other significant finding. IMPRESSION: NEGATIVE STUDY OF THE RIGHT ANKLE. NO RADIOGRAPHIC EVIDENCE OF ACUTE INJURY. TECHNICAL DOCUMENTATION: JOB ID: [id number] [employer]- All Rights Reserved Reading location - IP/workstation name: [email or web address]
--- NOTE | 2018-05-21 11:21 | ER Document Report ---
HPI - HPI Pain Level: 4 Notes: Patient is a 27-year-old female who presents to the ED complaining of right ankle pain status post injury yesterday. Patient states that she was doing flips and cartwheels in the yard when she twisted wrong. Patient states the pain does not radiate. Patient states that she has been limping. She has no other concerns or complaints at this time. Denies any drug allergies. She has had ice applied to the area which does seem to help. Denies any headache, fever , head injury, neck pain, URI, sore throat, chest pain, palpitations, syncope, cough, shortness of breath, wheeze, dyspnea, abdominal pain, nausea/vomiting/ diarrhea, urinary retention, dysuria, hematuria, numbness/tingling, muscle paralysis/weakness, or rash. - ROS Systems Reviewed and Negative: Yes All other systems reviewed and negative - REPRODUCTIVE Reproductive: DENIES: : Past Medical History - Social History Smoking Status: Current Every Day Smoker Family History: Reviewed & Not Pertinent - Immunizations Hx Pneumococcal Vaccination: 02/19/14 Vertical Provider Document - CONSTITUTIONAL Agree With Documented VS: Yes Notes: PHYSICAL EXAMINATION: GENERAL: Well-appearing, well-nourished and in no acute distress. LUNGS: Breath sounds clear to auscultation bilaterally and equal. No wheezes rales or rhonchi. HEART: Regular rate and rhythm without murmurs, rubs, gallops. Musculoskeletal: Rt foot/ankle: LROM to passive/active dorsiflexion. Strength 5 +/5. N/V intact distal. + tenderness to the medial malleolus and area of the ATFL. No bony tenderness of the foot. Achilles intact. Extremities: No cyanosis, clubbing, or edema b/l. Peripheral pulses 2+. Capillary refill less than 3 seconds. NEUROLOGICAL: Normal speech, limping gait. Normal sensory, motor exams PSYCH: Normal mood, normal affect. SKIN: Warm, Dry, normal turgor, no rashes or lesions noted. - INFECTION CONTROL TRAVEL OUTSIDE OF THE [place] IN LAST 30 DAYS: No Course - Re-evaluation Re-evalutation: 05/21/18 11:20 Patient is an afebrile, well-hydrated, 27-year-old female who presents to the ED with Rt ankle pain which I suspect to be a sprain versus strain. Vitals are acceptable without any significant tachycardia, tachypnea, or hypoxia. PE is otherwise unremarkable for any neurovascular compromise, obvious tendon/ ligament rupture, obvious fracture/dislocation, septic joint. X-ray was unremarkable for any acute pathology. Ankle stirrup and crutches were provided today. Ice applied. Patient is nontoxic-appearing. Patient is able to ambulate and weight-bear although she is limping. No other labs or imaging warranted at this time based on H&P. Conservative measures otherwise for symptoms. Recheck with your PCM in 3-5 days. Consider consult orthopedics. Return to the ED with any worsening/concerning symptoms otherwise as reviewed in discharge. Patient is in agreement. - Vital Signs Vital signs: Temp Pulse Resp BP Pulse Ox 98.0 F 109 H 14 125/75 98 05/21/18 10:20 05/21/18 10:20 05/21/18 10:20 05/21/18 10:20 05/21/18 10:20 Discharge - Discharge Clinical Impression: Right ankle pain Qualifiers: Chronicity: acute Qualified Code(s): M25.571 - Pain in right ankle and joints of right foot Condition: Stable Disposition: HOME, SELF-CARE Instructions: Ice & Elevation ([facility]), Ankle Stirrup Splint ([facility]), Use of Crutches ([facility]) Additional Instructions: Rest, Ice, Compression, Elevation Use crutches/splint/sling as directed Tylenol/ibuprofen as needed Light stretches daily Strength exercises as able Moist heat and massage may help F/u with your PCP in 3-5 days for a recheck Consider consult(s) with Orthopedics/physical therapy for ongoing/worsening symptoms Return to the ED with any worsening symptoms and/or development of fever, headache, chest pain, palpitations, syncope, shortness of breath, trouble breathing, abdominal pain, n/v/d, muscle weakness/paralysis, numbness/tingling, swelling, redness, or other worsening symptoms that are concerning to you. Forms: Smoking Cessation Education Referrals: DEYSI DRUMMOND MD [Primary Care Provider] - Follow up as needed [facility] [Provider Group] - Follow up as needed
[2018-05-21 11:35] VITALS: BP 124/91
== END 2018-05-21 11:40 | disposition home or self-care (01) ==
LOC: ER 10:13
DX: M25.571 Pain in right ankle and joints of right foot (principal); F17.200 Nicotine dependence, unspecified, uncomplicated
CPT/HCPCS: 99283; 73610; L4350

== ENCOUNTER → 2019-08-11 | Outpatient (CLI) | payer BC, OTHER ==
--- NOTE | 2019-08-11 12:01 | WOMENS IMAGING REPORT ---
EXAM DESCRIPTION: U/S BREAST UNILATERAL, COMPL COMPLETED DATE/TIME: 08/11/2019 11:47 am REASON FOR STUDY: RT BREAST PAIN N64.4; LEFT BREAST PAIN N64.4 N64.4 MASTODYNIA COMPARISON: None TECHNIQUE: Static and Realtime grayscale interrogation of the entire right breast(s) acquired. Jeffry arreola color doppler/spectral images saved to PACS. LIMITATIONS: None. FINDINGS: LEFT Masses:No evidence of solid mass. Approximately 10 o'clock 3 cm from the nipple, small complicated c yst suggested measuring 5 mm. Architecture:No alteration of normal morphology. No skin thickening. No edema. Other: None. RIGHT Masses:No cystic or solid masses identified Architecture:No alteration of normal morphology. No skin thickening. No edema. Other: None. IMPRESSION: No worrisome findings in the breasts bilaterally. BIRAD: 2 Benign findings. RECOMMENDATION: RECOMMENDED FOLLOW-UP: Clinical followup of breast pain. Age-appropriate yearly scr eening mammography. COMMENT: PATIENT NOTIFIED BY LETTER. [employer], [employer], and [employer] recommend an annual screening mammogram for women aged 40 years or over. Each patient will recei ve a reminder prior to the anniversary date of her mammogram. TECHNICAL DOCUMENTATION: FINDING NUMBER: (1) ASSESSMENT: (1) JOB ID: [id number] [employer]- All Rights Reserved Reading location - IP/workstation name: [email or web address]
--- NOTE | 2019-08-11 12:01 | WOMENS IMAGING REPORT ---
EXAM DESCRIPTION: U/S BREAST UNILATERAL, COMPL COMPLETED DATE/TIME: 08/11/2019 11:47 am REASON FOR STUDY: RT BREAST PAIN N64.4; LEFT BREAST PAIN N64.4 N64.4 MASTODYNIA COMPARISON: None TECHNIQUE: Static and Realtime grayscale interrogation of the entire right breast(s) acquired. Jeffry arreola color doppler/spectral images saved to PACS. LIMITATIONS: None. FINDINGS: LEFT Masses:No evidence of solid mass. Approximately 10 o'clock 3 cm from the nipple, small complicated c yst suggested measuring 5 mm. Architecture:No alteration of normal morphology. No skin thickening. No edema. Other: None. RIGHT Masses:No cystic or solid masses identified Architecture:No alteration of normal morphology. No skin thickening. No edema. Other: None. IMPRESSION: No worrisome findings in the breasts bilaterally. BIRAD: 2 Benign findings. RECOMMENDATION: RECOMMENDED FOLLOW-UP: Clinical followup of breast pain. Age-appropriate yearly scr eening mammography. COMMENT: PATIENT NOTIFIED BY LETTER. [employer], [employer], and [employer] recommend an annual screening mammogram for women aged 40 years or over. Each patient will recei ve a reminder prior to the anniversary date of her mammogram. TECHNICAL DOCUMENTATION: FINDING NUMBER: (1) ASSESSMENT: (1) JOB ID: [id number] [employer]- All Rights Reserved Reading location - IP/workstation name: [email or web address]
== END ==
LOC: WI 11:10
PROVIDERS: ATTEND Nurse Practitioner Family
DX: N64.4 Mastodynia (principal)
CPT/HCPCS: 76641